=== PATIENT | female | born 1960 | race Caucasian/White ===

== ENCOUNTER 2016-05-21 14:45 | Emergency (ER) | payer OTHER ==
[~2016-05-21] VITALS: Ht 162.6 cm; Wt 104.3 kg
[~2016-05-21 14:45] MED LIST: BACLOFEN10 M1 PO; CYPROHEPTADINE H4 M1 PO; DIVALPROEX SOD500 M3 PO; ETODOLAC400 M1 PO; ISOSORBIDE MONO30 M1 PO; JANUVIA100 M1 PO; LASIX40 M1 PO; LEVEMIR FL100 UNIT/1 SC; LEVETIRACETAM500 M2 PO; LOSARTAN POTASS50 M1 PO; METFORMIN HCL500 M4 PO; METOPROLOL SUCC25 M1 PO; PERCOCET 5-3251 EACH PO; TOPROL XL50 M1 PO; TRAMADOL HCL50 M1 PO; VICODIN 5-3001 EACH PO
--- NOTE | 2016-05-21 15:01 | ED GENERAL ADULT ---
History of Present Illness General Chief Complaint: General Adult Stated Complaint: BIBA HTN, LOPEZ X 1 WEEK Source: patient Exam Limitations: no limitations Vital Signs & Intake/Output Vital Signs & Intake/Output Vital Signs Date Time Temp Pulse Resp B/P Pulse O2 O2 Flow FiO2 Ox Delivery Rate 05/21 1706 98.4 96 16 152/84 96 Room Air 05/21 1559 Room Air 05/21 1450 97.7 84 18 152/91 96 Room Air Allergies Coded Allergies: Penicillins (UNKNOWN 04/01/16) Reconcile Medications Acetaminophen (Mapap) 500 MG CAPSULE 1 CAP PO PRN PAIN (Reported) Baclofen 10 MG TABLET 1 TAB PO DAILY PRN HEADACHE (Reported) Cyproheptadine HCl 4 MG TABLET 1-3 TAB PO BID PRN alleriges (Reported) Divalproex Sodium (Divalproex Sodium ER) 500 MG TAB.ER.24H 1 TAB PO BID SEIZURES (Reported) Etodolac 400 MG TABLET 1 TAB PO TID pain (Reported) Furosemide (Lasix) 40 MG TABLET 1 TAB PO EOD LEG SWELLING (Reported) Hydrocodone/Acetaminophen (Vicodin 5-300 MG Tablet) 5 MG-300 MG TABLET 1 TAB PO Q4-6 PRN PAIN(7-10) (Reported) Hydrocodone/Acetaminophen ([place] 5-325 Tablet) 5 MG-325 MG TABLET 1-2 TAB PO Q4-6 PRN PRN PAIN Insulin Detemir (Levemir Flextouch) 100 UNIT/ML (3 ML) INSULN.PEN 28 UNITS SC 0900 DM TYPE 2 (Reported) Insulin Detemir (Levemir Flextouch) 100 UNIT/ML (3 ML) INSULN.PEN 30 UNITS SC 2000 DM TYPE 2 (Reported) Isosorbide Mononitrate (Isosorbide Mononitrate ER) 30 MG TAB.ER.24H 1 TAB PO DAILY CHEST PAIN (Reported) Levetiracetam 500 MG TABLET 1 TAB PO TID SEIZURE (Reported) Losartan Potassium 50 MG TABLET 1 TAB PO BID HTN (Reported) Metformin HCl (Metformin HCl ER) 500 MG TAB.ER.24H 1 TAB PO DAILY DM TYPE 2 ( Reported) Metoprolol Succinate 50 MG TAB.ER.24H 1 TAB PO BID HTN (Reported) Sitagliptin Phosphate (Januvia) 100 MG TABLET 1 TAB PO DAILY DM TYPE 2 ( Reported) Tramadol HCl 50 MG TABLET 1 TAB PO TIDPRN PAIN (Reported) Triage Note: 56 YEAR OLD FEMALE TO ER VIA MABULANCE FROM HER HOME FOR COMPLAINTS OF ELEVATED BP, BP ON ARRIVAL 152/91 , AND PT STATES THAT SHE HAS SLIGHT HEADACHE , NSR ON MONITOR WITH HR 82. PT STATES THAT SHE HAS CHRONIC PAIN ISSUES DUE TO OSTEOARTHRITIS AND RA, ALSO STATES THAT SHE HAS PORT IN R SIDE CHEST THAT SHE GETS CHEMP TREATMENTS IN.PT TAKES BP MEDS AT HOME AND STATES THAT LOPRESSOR DOSE WAS JUST DOUBLED DUE TO ELEVATED BP'S. Triage Nurses Notes Reviewed? yes Onset: Gradual Duration: week(s): (1) Timing: recent history Injury Environment: home Severity: moderate Severity Numbers: 7 No Modifying Factors: none HPI: Patient is a 56-year-old female with chronic pain, history of hypertension presenting to the emergency Department chief complaint of elevated blood pressure and headaches going on for the past one week. She's been checking her blood pressure twice a day and has been elevated. She recently increased her antihypertensive medication per her doctor with little improvement in blood pressure. She also reports pain everywhere which is baseline for this patient. She takes Vicodin daily for pain. Denies any nausea or vomiting. No chest pain or palpitations. Denies shortness of breath. Denies abdominal pain. Nothing seems to make symptoms better or worse. Denies visual changes. Moderate. (JOANNA MULLER) Past History Travel History Traveled to [place] past 21 day No Medical History Any Pertinent Medical History? 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 No (JOANNA MULLER) Review of Systems Review of Systems Constitutional: Reports: no symptoms. Comments Review of systems: See HPI, All other systems negative. Constitutional, no chills fever or weight loss HEENT: No visual changes no sore throat no congestion Cardiovascular: No chest pain ,palpitation , orthopnea or ankle swelling Skin, no jaundice no rashes Respiratory: No dyspnea cough sputum or hemoptysis GI: No nausea no vomiting : No dysuria No hematuria Muscle skeletal: no neck pain, Neurologic: No numbness no confusion Psych: No stress anxiety or depression,. Heme/endocrine: No bruising no bleeding no polyuria or polydipsia Immunology: No splenectomy or history of AIDS (JOANNA MULLER) Physical Exam Physical Exam General Appearance: well developed/nourished, no apparent distress, alert, mild distress Comments: Well-developed well-nourished person in no acute distress HEENT: Normal EENT exam, extraocular motion intact, no nystagmus. Pupils equally round and reactive to light and accommodation. Nose is atraumatic. External auditory canal and Tympanic membranes clear. Pharynx normal. No swelling or edema. No sinus tenderness to palpation bilaterally. Neck: Supple, no lymphadenopathy, normal range of motion without pain or tenderness Back: diffuse tenderness to palpation over the lumbar paraspinal muscles, thoracic paraspinal muscles, Cardiovascular: Regular rate and rhythms no murmurs rubs or gallops, normal JVP Respiratory: Chest nontender. No respiratory distress.breath sounds clear to auscultation bilaterally Abdomen: Soft, obese, nontender nondistended, no appreciable organomegaly. Normal bowel sounds. No ascites Extremity: No edema, no calf tenderness to palpation, normal and equal pulses. Air cast on left ankle. Neuro: Alert oriented x3, motor sensory normal, cranial nerves II through XII grossly intact. Cerebellar testing is unremarkable. Skin: No appreciable rash on exposed skin, skin is warm and dry. Psych: Mood and affect is normal, memory and judgment is normal. Core Measures ACS in differential dx? No CVA/TIA Diagnosis: No Severe Sepsis Present: No Septic Shock Present: No (JOANNA MULLER) Progress Differential Diagnoses I considered the following diagnoses in my evaluation of the patient: Chronic pain, hypertensive urgency, intracranial hemorrhage, medication noncompliance, anxiety, tension headache, migraine headache, medication withdrawal Plan of Care: Orders Procedure Date/time Status Add-on Test (ER Only) 05/21 1558 Active LYME TITRE 05/21 1555 Active TROPONIN LEVEL 05/21 1500 Complete COMPREHENSIVE METABOLIC PANEL 05/21 1500 Complete CBC WITHOUT DIFFERENTIAL 05/21 1500 Complete EKG 05/21 1445 Active Laboratory Tests 05/21/16 1555: Anion Gap 10, Estimated GFR > 60, BUN/Creatinine Ratio 62.5 H, Glucose 166 H, Calcium 8.7, Total Bilirubin 0.5, AST 21, ALT 25, Alkaline Phosphatase 114, Troponin I < 0.01, Total Protein 6.6, Albumin 3.0 L, Globulin 3.6, Albumin/ Globulin Ratio 0.8 L, CBC w Diff NO MAN DIFF REQ, RBC 3.20 L, MCV 84.9, MCH 28.1, RDW 16.0 H, MPV 6.9 L, Gran % 67.5, Lymphocytes % 25.1, Monocytes % 5.0, Eosinophils % 2.1, Basophils % 0.3, Absolute Granulocytes 2.5, Absolute Lymphocytes 0.9 L, Absolute Monocytes 0.2, Absolute Eosinophils 0.1, Absolute Basophils 0, PUBS MCHC 33.1, Lyme Disease Antibody Pending Diagnostic Imaging: Viewed by Me: CT Scan. Discussed w/RAD: CT Scan. Radiology Impression: PATIENT: CONSTANTINE GARCIA PRESENT AGE: 56 PATIENT ACCOUNT NO: [id number] : 58 LOCATION: [facility] ORDERING PHYSICIAN: JOANNA LOWE SERVICE DATE: 05/21/16-1499 EXAM TYPE: CAT - CT HEAD WO IV CONTRAST EXAMINATION: CT HEAD WITHOUT CONTRAST CLINICAL INFORMATION: Headache. Hypertension. COMPARISON: CT head 04/03/2016. TECHNIQUE: Contiguous axial imaging was performed from the skull base to vertex without intravenous administration of contrast. DLP: 600.71 mGy-cm. FINDINGS: There is no acute intracranial hemorrhage or abnormal extra-axial collection. No intracranial mass effect or midline shift. Lateral and third ventricles are proportionate to the subarachnoid spaces. No hydrocephalus. Roldan-white matter differentiation is preserved and there is no evidence of acute territorial infarct. The calvarium and skull base are intact. Mastoid air cells and middle ear cavities are well aerated. Visualized paranasal sinuses are well aerated. IMPRESSION: No evidence of acute territorial infarct or hemorrhage. DICTATED BY: HYNECEK DORON HOLLOWAY DATE/TIME DICTATED:05/21/161542 MEDICAL RESEARCH ASSISTANT: VANNA CXR Impression: PATIENT: CONSTANTINE GARCIA PRESENT AGE: 56 PATIENT ACCOUNT NO: [id number] : 58 LOCATION: [facility] ORDERING PHYSICIAN: JOANNA LOWE SERVICE DATE: 05/21/16 EXAM TYPE: RAD - XRY- PORTABLE CHEST XRAY EXAMINATION: XR PORTABLE CHEST CLINICAL INFORMATION: Cardiomegaly. COMPARISON: Chest x-ray 04/01/2016 TECHNIQUE: Portable view of the chest was obtained. FINDINGS: Central port catheter tip at caval atrial junction. Lungs are clear. No pulmonary vascular congestion. Cardiac and mediastinal contours are normal. IMPRESSION: No acute abnormality of chest. DICTATED BY: CHARLIE WALKER MD DATE/TIME DICTATED:05/21/161544 MEDICAL RESEARCH ASSISTANT :VANNA DATE/TIME TRANSCRIBED:05/21/161544 Initial ED EKG: NSR Comments: On arrival patient in mild distress complaining about pain diffusely. She is neurologically intact. She was given a by mouth Vicodin with relief in pain. Blood pressure was in normal range. No indication for IV antihypertensive medications at this time. Patient for CT head. Patient informed of all lab results and imaging study results. No acute findings. Blood pressure remained stable. Patient much more comfortable this time after by mouth Vicodin. She'll follow-up with her rehabilitation tech and her primary care physician. Also given pain management as patient's family reports that they need similar they can take care of her chronic pain. Discussed with and he agrees to plan. EKG is normal sinus. (BRIAN LOWE,JOANNA) Departure Departure Time of Disposition: 1713 Disposition: HOME OR SELF CARE Condition: Stable Clinical Impression Primary Impression: Headache Qualifiers: Headache type: unspecified Headache chronicity pattern: unspecified pattern Intractability: not intractable Qualified Code: R51 - Headache Secondary Impressions: Chronic pain Referrals: NATHAN HOLLOWAY,TYLER Ribeiro (PCP/Family) Additional Instructions: Follow-up with your primary care physician call to make an appointment. Return for worsening symptoms or concerns. Make sure you follow up with your rehabilitation tech about your hypertension over the past week. Return for worsening symptoms or concerns. Departure Forms: Customer Survey General Discharge Information Prescriptions: Current Visit Scripts Hydrocodone/Acetaminophen ([place] 5-325 Tablet) 1-2 TAB PO Q4-6 PRN PRN PAIN #10 TAB (JOANNA MULLER) PA/MIXING PLANT OPERATOR Co-Sign Statement Statement: ED Attending supervision documentation- [] I saw and evaluated the patient. I have also reviewed all the pertinent lab results and diagnostic results. I agree with the findings and the plan of care as documented in the PA's/MIXING PLANT OPERATOR's documentation. x I have reviewed the ED Record and agree with the PA's/MIXING PLANT OPERATOR's documentation. [] Additions or exceptions (if any) to the PAs/MIXING PLANT OPERATOR's note and plan are summarized below: [] (CHIQUITA HOLLOWAY,SARTHAK) Critical Care Note Critical Care Note Critical Care Time: non-applicable (JOANNA MULLER)
--- NOTE | 2016-05-21 15:48 | CT SCAN REPORT ---
EXAMINATION: CT HEAD WITHOUT CONTRAST CLINICAL INFORMATION: Headache. Hypertension. COMPARISON: CT head 04/03/2016. TECHNIQUE: Contiguous axial imaging was performed from the skull base to vertex without intravenous administration of contrast. DLP: 600.71 mGy-cm. FINDINGS: There is no acute intracranial hemorrhage or abnormal extra-axial collection. No intracranial mass effect or midline shift. Lateral and third ventricles are proportionate to the subarachnoid spaces. No hydrocephalus. Roldan-white matter differentiation is preserved and there is no evidence of acute territorial infarct. The calvarium and skull base are intact. Mastoid air cells and middle ear cavities are well aerated. Visualized paranasal sinuses are well aerated. IMPRESSION: No evidence of acute territorial infarct or hemorrhage.
--- NOTE | 2016-05-21 15:50 | RADIOLOGY REPORT ---
EXAMINATION: XR PORTABLE CHEST CLINICAL INFORMATION: Cardiomegaly. COMPARISON: Chest x-ray 04/01/2016 TECHNIQUE: Portable view of the chest was obtained. FINDINGS: Central port catheter tip at caval atrial junction. Lungs are clear. No pulmonary vascular congestion. Cardiac and mediastinal contours are normal. IMPRESSION: No acute abnormality of chest.
[2016-05-21 16:05] LABS: ABSOLUTE BASOPHIL COUNT 0 /CUMM (0.0-0.2); ABSOLUTE EOSINOPHIL COUNT 0.1 /CUMM (0.0-0.7); ABSOLUTE GRANULOCYTE CT 2.5 /CUMM (1.4-6.5); ABSOLUTE LYMPH COUNT 0.9 /CUMM (1.2-3.4); ABSOLUTE MONOCYTE COUNT 0.2 /CUMM (0.10-0.60); BASOPHIL % 0.3 % (0.0-2.0); EOSINOPHIL % 2.1 % (0-5); GRANULOCYTE % 67.5 % (42.2-75.2); HEMATOCRIT 27.2 % (37-47); MEAN CORPUSCULAR HGB 28.1 PG (27.0-31.0); MEAN CORPUSCULAR HGB CONC 33.1 G/DL (33.0-37.0); MEAN CORPUSCULAR VOLUME 84.9 FL (81.0-99.0); MEAN PLATELET VOLUME 6.9 FL (7.4-10.4); PLATELET COUNT 197 /CUMM (130-400); WHITE BLOOD CELL COUNT 3.7 /CUMM (4.8-10.8)
[2016-05-21] MEDS ORDERED: METOPROLOL SUCC50 M2 PO (16:25)
[2016-05-21] MEDS ORDERED: MAPAP500 M2 PO (16:31)
[2016-05-21 17:06] VITALS: BP 152/84
[2016-05-21] MEDS ORDERED: NORCO 5-325 TA1 EACH PO (17:23)
== END 2016-05-21 17:36 ==
LOC: ERH 14:45
PROVIDERS: Physician Assistant
DX: R51 Headache (principal); G89.29 Other chronic pain
CPT/HCPCS: 86618; 93005; 93010

== ENCOUNTER 2016-09-02 13:31 | Inpatient (IN) | payer OTHER ==
[~2016-09-02] VITALS: Ht 162.6 cm; Wt 112.0 kg
[~2016-09-02 13:31] MED LIST changes: +MAPAP500 M2 PO; +METOPROLOL SUCC50 M2 PO; +NORCO 5-325 TA1 EACH PO
--- NOTE | 2016-09-02 14:26 | ED GENERAL ADULT ---
See Addendum History of Present Illness General Chief Complaint: General Adult Stated Complaint: WEAKNESS Source: patient, family, old records Exam Limitations: no limitations Vital Signs & Intake/Output Vital Signs & Intake/Output Vital Signs Date Time Temp Pulse Resp B/P Pulse O2 O2 Flow FiO2 Ox Delivery Rate 09/03 0023 68 122/82 09/02 2309 98.2 80 20 122/82 97 Room Air 09/02 2039 97.5 86 20 123/68 96 Room Air 09/02 1828 78 18 123/58 92 Room Air 09/02 1500 96 Room Air 09/02 1435 90 118/56 09/02 1416 81/56 09/02 1415 88 102/74 09/02 1337 97.7 91 22 123/82 96 Room Air Allergies Coded Allergies: Penicillins (UNKNOWN 04/01/16) Triage Note: PT SENT IN BY DR. CARMEN FOR ANEMIA AND SOB WITH EXERTION. PER DR. CARMEN PT WAS SOB AT THE OFFICE WHEN EXERTING HERSELF. PT RA SAT ON ARRIVAL 96% BUT MD REPORTED A SAT OF 81% WITH EXERTION. Triage Nurses Notes Reviewed? yes Onset: Abrupt Duration: week(s): (2), constant, continues in ED Timing: recent history Injury Environment: home Severity: moderate, severe No Modifying Factors: none HPI: 56-year-old female comes into emergency room for further evaluation of increased weakness over the past 2 weeks shortness of breath and fatigue. Patient has been having associated lightheadedness. Patient has a history of myelodysplastic syndrome. She was at the cancer center today for routine checkup and she was found to be hypoxic to 81% on room air. She was sent over to the hospital for further evaluation. She denies any cough. She denies any fever. Denies any vomiting or abdominal pain. (DEANA LANTIGUA) Reconcile Medications Acetaminophen (Mapap) 500 MG CAPSULE 1 CAP PO Q6 PRN PAIN (Reported) Amlodipine Besylate 5 MG TABLET 2 TAB PO DAILY HEART (Reported) Baclofen 10 MG TABLET 1 TAB PO DAILY PRN HEADACHE (Reported) Chlorthalidone 25 MG TABLET 0.5 TAB PO DAILY WATER RETENTION (Reported) Cyproheptadine HCl 4 MG TABLET 2 TAB PO BID PRN alleriges (Reported) Divalproex Sodium (Divalproex Sodium ER) 500 MG TAB.ER.24H 1 TAB PO BID SEIZURES (Reported) Esomeprazole (Nexium) 40 MG CAPSULE.DR 1 CAP PO DAILY GI (Reported) Etodolac 400 MG TABLET 1 TAB PO TID pain (Reported) Fexofenadine HCl (Deana Allergy) 60 MG TABLET 1 TAB PO DAILY PRN ALLERGIES (Reported) Hydrocodone/Acetaminophen (Hydrocodon-Acetaminoph 7.5-325) 7.5 MG-325 MG TABLET 1 TAB PO Q8P PRN PAIN (Reported) Insulin Detemir (Levemir) 100 UNIT/ML VIAL 15 UNITS SC DAILY diabetes Isosorbide Mononitrate (Isosorbide Mononitrate ER) 30 MG TAB.ER.24H 1 TAB PO DAILY CHEST PAIN (Reported) Levetiracetam 500 MG TABLET 1 TAB PO 4 TIMES/DAY SEIZURES (Reported) Losartan Potassium 50 MG TABLET 1 TAB PO BID HTN (Reported) Metformin HCl (Metformin HCl ER) 500 MG TAB.ER.24H 1 TAB PO DAILY DM TYPE 2 ( Reported) Metoprolol Succinate 50 MG TAB.ER.24H 1 TAB PO BID HTN (Reported) Morphine Sulfate (Morphine Sulfate ER) 15 MG TABLET.ER 1 TAB PO BIDP pain Multivitamin (Daily Multiple Vitamin) 1 EACH TABLET 1 TAB PO DAILY SUPPLEMENT (Reported) Rutin/Hesp/Bioflav/C/Herb#196 (Bioflex Tablet) 40 MG-25 MG-50 MG-500 MG TABLET 1 TAB PO DAILY SUPPLEMENT (Reported) Sitagliptin Phosphate (Januvia) 100 MG TABLET 1 TAB PO DAILY DM TYPE 2 ( Reported) (OTPHER HOLLOWAY,KENA) Past History Travel History Traveled to [place] past 21 day No Medical History Any Pertinent Medical History? 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 No (DEANA LANTIGUA) Review of Systems Review of Systems Constitutional: Reports: see HPI. EENTM: Reports: no symptoms. Respiratory: Reports: see HPI. Cardiovascular: Reports: no symptoms. GI: Reports: see HPI. Genitourinary: Reports: see HPI. Musculoskeletal: Reports: no symptoms. Skin: Reports: no symptoms. Neurological/Psychological: Reports: no symptoms. Hematologic/Endocrine: Reports: no symptoms. Immunologic/Allergic: Reports: no symptoms. All Other Systems: Reviewed and Negative (DEANA LANTIGUA) Physical Exam Physical Exam General Appearance: alert, awake Head: atraumatic, normal appearance Eyes: Bilateral: normal appearance. Ears, Nose, Throat: normal ENT inspection, hearing grossly normal Neck: normal inspection Respiratory: normal breath sounds, no respiratory distress Cardiovascular: regular rate/rhythm, tachycardia Gastrointestinal: soft, non-tender Back: normal inspection Extremities: normal inspection Skin: pallor Core Measures ACS in differential dx? Yes CVA/TIA Diagnosis: No Severe Sepsis Present: No Septic Shock Present: No (DEANA LANTIGUA) Progress Differential Diagnoses I considered the following diagnoses in my evaluation of the patient: Anemia, GI bleed, sepsis, hypovolemic shock, orthostatic, electrolyte imbalance, pneumonia, pulmonary embolism, [place], Plan of Care: Orders Procedure Date/time Status Consistent Carbohydrate 3 09/03 B Active AMMONIA 09/03 0600 Active CBC WITHOUT DIFFERENTIAL 09/03 0600 Active BASIC ELECTROLYTES PLUS BUN&CR 09/03 0600 Active TROPONIN LEVEL 09/03 0400 Active EKG 09/03 0400 Active Change service to 09/02 2318 Active EKG 09/02 2200 Active TROPONIN LEVEL 09/02 2149 Complete LOWER RESPIRATORY CULTURE 09/02 2122 Active Code Status 09/02 2121 Active TRC EVALUATION (GEN) 09/02 2017 Active OXYGEN SETUP (GEN) 09/02 2017 Active Pathway - chart 09/02 2017 Active House Staff 09/02 2016 Active Patient Data 09/02 2001 Active Saline Lock 09/02 1957 Active Misc Message 09/02 1957 Active ED Holding Orders 09/02 1957 Active Vital Signs 09/02 1957 Active Activity/Ambulation 09/02 1957 Active Code Status 09/02 1957 Complete Admit to inpatient 09/02 1943 Active BLOOD CULTURE 09/02 1456 Active THYROID STIMULATING HORMONE 09/02 1447 Active GLYCOSYLATED HGB 09/02 1447 Active MISTAKE 09/02 1431 Active BLOOD CULTURE 09/02 1430 Active URINALYSIS 09/02 1430 Complete TROPONIN LEVEL 09/02 1430 Active LACTIC ACID 09/02 1430 Active D-DIMER 09/02 1430 Complete COMPREHENSIVE METABOLIC PANEL 09/02 1430 Active CBC WITHOUT DIFFERENTIAL 09/02 1430 Complete TYPE & SCREEN (NOT X-MATCH) 09/02 1430 Complete Intake & Output 09/02 1427 Active EKG 09/02 1413 Active US-EXT BILAT VENOUS DOPPLER 09/02 UNK Active PT Evaluate & Treat 09/02 UNK Active Lab Add-on Test 09/02 UNK Active VTE Mechanical Prophylaxis 09/02 UNK Active Vital Signs 09/02 UNK Complete MISTAKE 09/02 UNK Active Seizure Precautions 09/02 UNK Active Precautions 09/02 UNK Active FingerStick- Glucose 09/02 UNK Active ECHOCARDIOGRAM 09/02 UNK Active Current Medications Sig/Emile Start time Last Medication Dose Stop Time Status Admin Amlodipine Besylate 10 MG DAILY 09/03 1000 AC (Norvasc) Insulin Detemir 20 UNITS BID 09/03 1000 UNVr (Levemir) Losartan Potassium 50 MG DAILY 09/03 1000 AC (Cozaar) Multivitamins 1 TAB DAILY 09/03 1000 AC Therapeutic (Theragran-M Vitamins Tabs) Insulin Aspart 0 TIDAC 09/03 0800 AC (NovoLOG) Omeprazole 40 MG DAILY AC 09/03 0700 AC (Prilosec) Acetaminophen 650 MG Q4P PRN 09/02 2200 AC (Tylenol) Morphine Sulfate 15 MG TID 09/02 2200 CAN (Duramorph/Pf) Morphine Sulfate 15 MG TID 09/02 2200 CAN (MSIR) Acetaminophen/ 15 ML Q8P PRN 09/02 2145 AC Hydrocodone Bitart (Hycet) Sodium Chloride 1,000 ML Q13H 09/02 2130 AC (Normal Saline 0.9%) 09/03 1029 Azithromycin 1,000 MG ONCE ONE 09/02 1944 CAN (Zithromax) 09/02 1945 Ceftriaxone Sodium 250 MG ONCE ONE 09/02 1944 CAN (Rocephin) 09/02 1945 Fluconazole 150 MG ONCE ONE 09/02 1944 CAN (Diflucan) 09/02 1945 Laboratory Tests 09/02/16 2240: Urinalysis MANY H, Urine Color YEL, Urine Clarity HAZY H, Urine pH 6.0, Ur Specific [place] <= 1.005, Urine Protein NEG, Urine Ketones NEG, Urine Nitrite NEG, Urine Bilirubin MOD H, Urine Urobilinogen 0.2, Ur Leukocyte Esterase TRACE H, Ur Microscopic SEDIMENT EXAMINED, Urine RBC RARE, Urine WBC 1-3 H, Ur Epithelial Cells MOD H, Urine Bacteria FEW H, Hyaline Casts RARE H, Granular Casts RARE H, Urine Mucus FEW, Urine Hemoglobin NEG, Urine Glucose NEG 09/02/16 2150: Troponin I < 0.01 09/02/16 1730: Lactic Acid Cancelled 09/02/16 1447: Anion Gap 10, Estimated GFR > 60, BUN/Creatinine Ratio 37.8 H, Glucose 101 H, Hemoglobin A1c Pending, Lactic Acid 1.7, Calcium 10.0, Total Bilirubin 0.7, AST 19, ALT 31, Alkaline Phosphatase 100, Troponin I < 0.01, Total Protein 7.4, Albumin 3.4 L, Globulin 4.0, Albumin/Globulin Ratio 0.9 L, TSH 3.060, D-Dimer 3880 H, CBC w Diff NO MAN DIFF REQ, RBC 3.17 L, MCV 86.3, MCH 29.3, RDW 16.1 H, MPV 6.2 L, Gran % 69.5, Lymphocytes % 20.3 L, Monocytes % 8.4, Eosinophils % 1.6, Basophils % 0.2, Absolute Granulocytes 3.1, Absolute Lymphocytes 0.9 L, Absolute Monocytes 0.4, Absolute Eosinophils 0.1, Absolute Basophils 0, PUBS MCHC 34.0 Microbiology 09/02 2121 LOWER RESP: Respiratory Culture - ORD 09/02 2121 LOWER RESP: Gram Stain - ORD 09/02 1455 BLOOD: Blood Culture - RECD 09/02 1447 BLOOD: Blood Culture - RECD 09/02 1430 BLOOD: Blood Culture - CAN Cancelled: Cancelled via OE: NEED NEW ORDER Diagnostic Imaging: Viewed by Me: Radiology Read, CT Scan. Discussed w/RAD: Radiology Read, CT Scan. Radiology Impression: EXAM TYPE: CAT - CTA CHEST-PULMONARY EMBOLISM EXAMINATION: CT ANGIOGRAM OF THE CHEST WITH AND WITHOUT CONTRAST (CT PULMONARY ANGIOGRAM FOR PE) CLINICAL INFORMATION: Hypoxia. Elevated d-dimer. COMPARISON: CT chest dated 04/13/2010 TECHNIQUE: Prior to contrast administration, noncontrast localization images were obtained. Subsequently, multidetector volumetric imaging was performed from the thoracic inlet to below the diaphragms following the administration of 95 mL Optiray 350 intravenous contrast. No contrast reaction reported. Sagittal, coronal, and MIP oblique sagittal reformatted images were obtained on the CT workstation, uploaded to PACS, and reviewed. Total exam dose- length product 599.73 mGy-cm. FINDINGS: QUALITY OF STUDY/CONTRAST BOLUS: Satisfactory PULMONARY ARTERIES: No central or segmental pulmonary emboli. THORACIC AORTA: Mild atherosclerotic disease. No evidence of aneurysmal dilatation or dissection. LUNG: Mild centrilobular emphysematous changes. Minor dependent atelectatic changes. No suspicious airspace opacity. No suspicious lung nodules. Subsegmental linear atelectatic changes left base. Tracheobronchial tree is within normal limits. PLEURA: No pleural effusion or pneumothorax. MEDIASTINUM: Right-sided Port-A-Cath with the tip at the cavoatrial junction. No evidence of mediastinal or hilar lymphadenopathy. Mildly enlarged lymph nodes noted in the left retropectoral region (series 600 image 25 ) measuring approximately 1 cm. This represents an interval change. Small reactive lymph nodes noted in the superior mediastinum. No evidence of hilar lymphadenopathy. No evidence of septal bowing or right heart strain. Mild asymmetric prominence of the right thyroid lobe also seen on the prior examination. No discrete nodules identified. CHEST WALL/AXILLA: Mildly enlarged subpectoral chest wall lymph node. No extra evidence of axillary lymphadenopathy. No gross axillary lymphadenopathy. Right posterior diaphragmatic Bochdalek hernia. OSSEOUS STRUCTURES: Scoliosis and degenerative changes of the thoracic spine. No acute or suspicious osseous abnormality. UPPER ABDOMEN: Splenomegaly measuring approximately 15 cm in the AP diameter. Focal prominence right adrenal gland measuring 1.9 x 1.2 cm. Hounsfield units do not represent lipid rich adrenal adenoma. Further assessment with dedicated adrenal CT scan is therefore recommended. No reflux of contrast into the hepatic veins to suggest elevated right heart pressures. IMPRESSION: 1. There is no CTA evidence of acute pulmonary embolism. 2. No suspicious lung nodules. 3. Nonspecific mildly enlarged left subpectoral lymph node. 4. Stable right adrenal enlargement. Given the long-term stability, likely representing benign etiology.. 5. Stable splenomegaly. VTE: negative DICTATED BY: JANET MCNULTY MD DATE/TIME DICTATED:09/02/161699 WASHING MACHINE MECHANIC:VANNA DATE/TIME TRANSCRIBED:09/02/161699, EXAM TYPE: RAD - XRY-CHEST XRAY, PA AND LATERAL EXAMINATION: XR CHEST CLINICAL INFORMATION: Evaluate for pneumonia. Shortness of breath. COMPARISON: Chest x-rays most recent prior dated 05/21/2016 TECHNIQUE: 2 views of the chest were obtained. FINDINGS: Right-sided Port-A-Cath with the tip at the caval atrial junction. Stable cardiomediastinal silhouette. Lungs are clear. Bony thorax is intact. IMPRESSION: No acute pulmonary disease. Initial ED EKG: normal intervals, normal p-waves, normal sinus rhythm, rate (85) , nonspecific ST T wave chg (DEANA LANTIGUA) Departure Departure Disposition: STILL A PATIENT Condition: Stable Clinical Impression Primary Impression: Acute electrocardiogram changes Secondary Impressions: Orthostatic hypotension, Prerenal azotemia Referrals: TYLER EVANS MD (PCP/Family) Departure Forms: Customer Survey General Discharge Information Admission Note Spoke With: TYLER EVANS MD Documentation of Exam: Documentation of any treatments & extenuating circumstances including Concerns Regarding Discharge (functional status, medication knowledge or non-compliance, living conditions, etc.) that warrant an admission rather than observation: Patient will require IV hydration. Cardiac telemetry. Oncology consultation. Repeat labs. Patient would do poorly as an outpatient. (DEANA LANTIGUA) Departure Prescriptions: Current Visit Scripts Insulin Detemir (Levemir) 15 UNITS SC DAILY 30 Days Morphine Sulfate (Morphine Sulfate ER) 1 TAB PO BIDP #10 TAB (TOPHER HOLLOWAY,KENA) PA/ARTS AND CRAFTS INSTRUCTOR Co-Sign Statement Statement: ED Attending supervision documentation- [X] I saw and evaluated the patient. I have also reviewed all the pertinent lab results and diagnostic results. I agree with the findings and the plan of care as documented in the PA's/ARTS AND CRAFTS INSTRUCTOR's documentation. [X] I have reviewed the ED Record and agree with the PA's/ARTS AND CRAFTS INSTRUCTOR's documentation. [] Additions or exceptions (if any) to the PAs/ARTS AND CRAFTS INSTRUCTOR's note and plan are summarized below: [] (LEILA HOLLOWAY,KEVIN Mancera) Critical Care Note Critical Care Note Critical Care Time: non-applicable (DEANA LANTIGUA)
[2016-09-02] MEDS ORDERED: AMLODIPINE BESYL5 M1 PO (14:41)
[2016-09-02] MEDS ORDERED: DAILY MULTIPLE1 EACH PO (14:41)
[2016-09-02] MEDS ORDERED: NEXIUM40 M1 PO (14:42)
[2016-09-02] MEDS ORDERED: BIOFLEX TABLET1 EACH PO (14:43)
[2016-09-02] MEDS ORDERED: ALLEGRA ALLERGY60 M1 PO (14:44)
[2016-09-02] MEDS ORDERED: CHLORTHALIDONE25 M1 PO (14:44)
[2016-09-02] MEDS ORDERED: MORPHINE SULFAT15 M3 PO (14:45)
[2016-09-02] MEDS ORDERED: HYDROCODON-ACE1 EAC3 PO (14:45)
[2016-09-02 15:01] LABS: ABSOLUTE BASOPHIL COUNT 0 /CUMM (0.0-0.2); ABSOLUTE EOSINOPHIL COUNT 0.1 /CUMM (0.0-0.7); ABSOLUTE GRANULOCYTE CT 3.1 /CUMM (1.4-6.5); ABSOLUTE LYMPH COUNT 0.9 /CUMM (1.2-3.4); ABSOLUTE MONOCYTE COUNT 0.4 /CUMM (0.10-0.60); BASOPHIL % 0.2 % (0.0-2.0); EOSINOPHIL % 1.6 % (0-5); GRANULOCYTE % 69.5 % (42.2-75.2); HEMATOCRIT 27.3 % (37-47); MEAN CORPUSCULAR HGB 29.3 PG (27.0-31.0); MEAN CORPUSCULAR VOLUME 86.3 FL (81.0-99.0); MEAN PLATELET VOLUME 6.2 FL (7.4-10.4); PLATELET COUNT 286 /CUMM (130-400); RBC DISTRIBUTION WIDTH 16.1 % (11.5-14.5); RED BLOOD CELL CT 3.17 /CUMM (4.20-5.40); WHITE BLOOD CELL COUNT 4.5 /CUMM (4.8-10.8)
--- NOTE | 2016-09-02 15:53 | RADIOLOGY REPORT ---
EXAMINATION: XR CHEST CLINICAL INFORMATION: Evaluate for pneumonia. Shortness of breath. COMPARISON: Chest x-rays most recent prior dated 05/21/2016 TECHNIQUE: 2 views of the chest were obtained. FINDINGS: Right-sided Port-A-Cath with the tip at the caval atrial junction. Stable cardiomediastinal silhouette. Lungs are clear. Bony thorax is intact. IMPRESSION: No acute pulmonary disease.
--- NOTE | 2016-09-02 17:20 | CT SCAN REPORT ---
EXAMINATION: CT ANGIOGRAM OF THE CHEST WITH AND WITHOUT CONTRAST (CT PULMONARY ANGIOGRAM FOR PE) CLINICAL INFORMATION: Hypoxia. Elevated d-dimer. COMPARISON: CT chest dated 04/13/2010 TECHNIQUE: Prior to contrast administration, noncontrast localization images were obtained. Subsequently, multidetector volumetric imaging was performed from the thoracic inlet to below the diaphragms following the administration of 95 mL Optiray 350 intravenous contrast. No contrast reaction reported. Sagittal, coronal, and MIP oblique sagittal reformatted images were obtained on the CT workstation, uploaded to PACS, and reviewed. Total exam dose-length product 599.73 mGy-cm. FINDINGS: QUALITY OF STUDY/CONTRAST BOLUS: Satisfactory PULMONARY ARTERIES: No central or segmental pulmonary emboli. THORACIC AORTA: Mild atherosclerotic disease. No evidence of aneurysmal dilatation or dissection. LUNG: Mild centrilobular emphysematous changes. Minor dependent atelectatic changes. No suspicious airspace opacity. No suspicious lung nodules. Subsegmental linear atelectatic changes left base. Tracheobronchial tree is within normal limits. PLEURA: No pleural effusion or pneumothorax. MEDIASTINUM: Right-sided Port-A-Cath with the tip at the cavoatrial junction. No evidence of mediastinal or hilar lymphadenopathy. Mildly enlarged lymph nodes noted in the left retropectoral region (series 600 image 25) measuring approximately 1 cm. This represents an interval change. Small reactive lymph nodes noted in the superior mediastinum. No evidence of hilar lymphadenopathy. No evidence of septal bowing or right heart strain. Mild asymmetric prominence of the right thyroid lobe also seen on the prior examination. No discrete nodules identified. CHEST WALL/AXILLA: Mildly enlarged subpectoral chest wall lymph node. No extra evidence of axillary lymphadenopathy. No gross axillary lymphadenopathy. Right posterior diaphragmatic Bochdalek hernia. OSSEOUS STRUCTURES: Scoliosis and degenerative changes of the thoracic spine. No acute or suspicious osseous abnormality. UPPER ABDOMEN: Splenomegaly measuring approximately 15 cm in the AP diameter. Focal prominence right adrenal gland measuring 1.9 x 1.2 cm. Hounsfield units do not represent lipid rich adrenal adenoma. Further assessment with dedicated adrenal CT scan is therefore recommended. No reflux of contrast into the hepatic veins to suggest elevated right heart pressures. IMPRESSION: 1. There is no CTA evidence of acute pulmonary embolism. 2. No suspicious lung nodules. 3. Nonspecific mildly enlarged left subpectoral lymph node. 4. Stable right adrenal enlargement. Given the long-term stability, likely representing benign etiology.. 5. Stable splenomegaly. VTE: negative
--- NOTE | 2016-09-02 20:10 | History & Physical ---
SEBASTIAN OBANDO MD 09/02/16 2009: General Information and HPI MD Statement: I have seen and personally examined CONSTANTINE GARCIA and documented this H&P. The patient is a 56 year old F who presented with a patient stated chief complaint of []. Source of Information: patient, family, old records Exam Limitations: no limitations History of Present Illness: Patient is a 56-year-old female with hx of coronary artery disease , history of cardiac catheterization(2010) found to have normal coronaries, hypertension, diastolic heart failure , goiter, seizures (on Keppra and Depakote), osteoarthritis, osteoporosis, bilateral ankle fracture , type 2 diabetes, anemia , myelodysplastic syndrome presented with chief complaints of generalized weakness, shortness of breath and fatigue associated with light headedness since past 2 weeks. Most of the history is taken from the . She had chemotherapy in 2005. She is regularly following Dr Baez.When she was in the cancer Center she was found to have low SPO2 of 81% on room air after walking couple of steps. So she was sent to the hospital for further workup. She is also saying that she feel lethargic since 2 -3 weeks, she has no appetite , complaining of nausea, cold finger, lightheaded, shakes. Since couple of days. Her sugar level are going down, they are in 50s specialy in the morning. She was also complaining of chest pain,intermittent in nature, located in left side of chest, lasted for couple of minutes, sharp and stabbing in nature, she had similar pain before and she think it is same like hurt burn. She is also complaining of nocturia and increased frequency of urination. she feels foggy sometimes when she changes the position. She is also having small area of excoriation in lower back secondary to use of dependable. She also says that her brother is sick. He is having cough. She is following Dr maxwell and last visit was a week ago and was tols she is stable from cardiac point of view. She is on morphine/Java codeine for ankle pain. Denies fever, chills. Dysuria, hematuria, diarrhea, constipation, palpitation. Personal history - doesn't smoke, occasionally drinks alcohol. Allergies penicillin Allergies/Medications Allergies: Coded Allergies: Penicillins (UNKNOWN 04/01/16) Home Med list Acetaminophen (Mapap) 500 MG CAPSULE 1 CAP PO PRN PAIN (Reported) Amlodipine Besylate 5 MG TABLET 2 TAB PO DAILY HEART (Reported) Baclofen 10 MG TABLET 1 TAB PO DAILY PRN HEADACHE (Reported) Chlorthalidone 25 MG TABLET 0.5 TAB PO DAILY WATER RETENTION (Reported) Cyproheptadine HCl 4 MG TABLET 2 TAB PO BID PRN alleriges (Reported) Divalproex Sodium (Divalproex Sodium ER) 500 MG TAB.ER.24H 1 TAB PO BID SEIZURES (Reported) Esomeprazole (Nexium) 40 MG CAPSULE.DR 1 CAP PO DAILY GI (Reported) Etodolac 400 MG TABLET 1 TAB PO TID pain (Reported) Fexofenadine HCl (Deana Allergy) 60 MG TABLET 1 TAB PO DAILY PRN ALLERGIES (Reported) Furosemide (Lasix) 40 MG TABLET 1 TAB PO EOD LEG SWELLING (Reported) Hydrocodone/Acetaminophen (Hydrocodon-Acetaminoph 7.5-325) 7.5 MG-325 MG TABLET 1 TAB PO Q8P PRN PAIN (Reported) Insulin Detemir (Levemir Flextouch) 100 UNIT/ML (3 ML) INSULN.PEN 28 UNITS SC 0900 DM TYPE 2 (Reported) Insulin Detemir (Levemir Flextouch) 100 UNIT/ML (3 ML) INSULN.PEN 28 UNITS SC 2000 DM TYPE 2 (Reported) Isosorbide Mononitrate (Isosorbide Mononitrate ER) 30 MG TAB.ER.24H 1 TAB PO DAILY CHEST PAIN (Reported) Levetiracetam 500 MG TABLET 1 TAB PO 4 TIMES/DAY SEIZURES (Reported) Losartan Potassium 50 MG TABLET 1 TAB PO BID HTN (Reported) Metformin HCl (Metformin HCl ER) 500 MG TAB.ER.24H 1 TAB PO DAILY DM TYPE 2 ( Reported) Metoprolol Succinate 50 MG TAB.ER.24H 1 TAB PO BID HTN (Reported) Morphine Sulfate (Morphine Sulfate ER) 15 MG TABLET.ER 1 TAB PO TID PAIN ( Reported) Multivitamin (Daily Multiple Vitamin) 1 EACH TABLET 1 TAB PO DAILY SUPPLEMENT (Reported) Rutin/Hesp/Bioflav/C/Herb#196 (Bioflex Tablet) 40 MG-25 MG-50 MG-500 MG TABLET 1 TAB PO DAILY SUPPLEMENT (Reported) Sitagliptin Phosphate (Januvia) 100 MG TABLET 1 TAB PO DAILY DM TYPE 2 ( Reported) Past History Travel History Traveled to [place] past 21 day No Medical History Neurological: seizure EENT: NONE Cardiovascular: angina, hypertension Respiratory: NONE Gastrointestinal: NONE Hepatic: NONE Renal: NONE Musculoskeletal: osteoarthritis, osteoporosis, R ANKLE FX FRACTURE L ANKLE Psychiatric: NONE Endocrine: diabetes Blood Disorders: anemia Cancer(s): MYELOID DYSPLASIA CANCER HAS PORT R CHEST WALL 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 spouse Services at Home: None Primary Language: Romanian Smoking Status: Never Smoked ETOH Use: denies use Illicit Drug Use: denies illicit drug use Functional Ability ADLs Needs Assist: dressing, eating, toileting, bathing. Ambulation: Bedbound IADLs Independent: finances, telephone, medication admin. Needs Assist: shopping, housework, food prep, transportation. Review of Systems Review of Systems Constitutional: Reports: weakness. Denies: chills, diaphoresis, fever, malaise. EENTM: Denies: no symptoms. Cardiovascular: Reports: chest pain, edema. Denies: orthopena, palpitations, peripheral edema, syncope. Respiratory: Reports: short of breath. Denies: cough, hemoptysis, orthopnea, sputum production, stridor, wheezing. GI: Denies: no symptoms. Genitourinary: Reports: frequency. Musculoskeletal: Reports: joint pain. Skin: Reports: erythema. Neurological/Psychological: Reports: confusion, depressed. Denies: anxiety. Exam & Diagnostic Data Last 24 Hrs of Vital Signs/I&O Vital Signs Date Time Temp Pulse Resp B/P Pulse O2 O2 Flow FiO2 Ox Delivery Rate 09/02 2038 97.5 86 20 123/68 96 Room Air 09/02 1828 78 18 123/58 92 Room Air 09/02 1500 96 Room Air 09/02 1435 90 118/56 09/02 1416 81/56 09/02 1415 88 102/74 09/02 1337 97.7 91 22 123/82 96 Room Air Physical Exam General Appearance Alert, Oriented X3, Cooperative, No Acute Distress Skin small rash on lower back, port on right upper part of chest HEENT Atraumatic, PERRLA, EOMI Neck short and thick Cardiovascular Normal S1, Normal S2 Lungs Clear to Auscultation, Normal Air Movement Abdomen Soft, No Tenderness, distended Neurological Normal Speech Extremities No Clubbing, No Cyanosis, No Edema, left leg is more swollen than right leg Vascular Normal Pulses, Pulses Symmetrical Last 24 Hrs of Labs/Baltazar: Laboratory Tests 09/02/16 2240: Urinalysis MANY H, Urine Color YEL, Urine Clarity HAZY H, Urine pH 6.0, Ur Specific [place] <= 1.005, Urine Protein NEG, Urine Ketones NEG, Urine Nitrite NEG, Urine Bilirubin MOD H, Urine Urobilinogen 0.2, Ur Leukocyte Esterase TRACE H, Ur Microscopic SEDIMENT EXAMINED, Urine RBC RARE, Urine WBC 1-3 H, Ur Epithelial Cells MOD H, Urine Bacteria FEW H, Hyaline Casts RARE H, Granular Casts RARE H, Urine Mucus FEW, Urine Hemoglobin NEG, Urine Glucose NEG 09/02/16 2150: Troponin I < 0.01 09/02/16 1730: Lactic Acid Cancelled 09/02/16 1447: Anion Gap 10, Estimated GFR > 60, BUN/Creatinine Ratio 37.8 H, Glucose 101 H, Hemoglobin A1c Pending, Lactic Acid 1.7, Calcium 10.0, Total Bilirubin 0.7, AST 19, ALT 31, Alkaline Phosphatase 100, Troponin I < 0.01, Total Protein 7.4, Albumin 3.4 L, Globulin 4.0, Albumin/Globulin Ratio 0.9 L, TSH 3.060, D-Dimer 3880 H, CBC w Diff NO MAN DIFF REQ, RBC 3.17 L, MCV 86.3, MCH 29.3, RDW 16.1 H, MPV 6.2 L, Gran % 69.5, Lymphocytes % 20.3 L, Monocytes % 8.4, Eosinophils % 1.6, Basophils % 0.2, Absolute Granulocytes 3.1, Absolute Lymphocytes 0.9 L, Absolute Monocytes 0.4, Absolute Eosinophils 0.1, Absolute Basophils 0, PUBS MCHC 34.0 Microbiology 09/02 2121 LOWER RESP: Respiratory Culture - ORD 09/02 2121 LOWER RESP: Gram Stain - ORD 09/02 1455 BLOOD: Blood Culture - RECD 09/02 1447 BLOOD: Blood Culture - RECD 09/02 1430 BLOOD: Blood Culture - CAN Cancelled: Cancelled via OE: NEED NEW ORDER Diagnostic Data EKG Results Heart rate 56, inverted T waves in V2, V3 and V4, QS complex in lead 3 CXR Results no acute pulmonary disease Assessment/Plan Assessment: Patient is a 56-year-old female with hx of coronary artery disease , history of cardiac catheterization(2010) found to have normal coronaries, hypertension, diastolic heart failure , goiter, seizures (on Keppra and Depakote), osteoarthritis, osteoporosis, type 2 diabetes, anemia, myelodysplastic syndrome presented with chief complaints of generalized weakness, shortness of breath and fatigue associated with light headedness since past 2 weeks. She had chemotherapy in 2005. She is regularly following Dr Baez.When she was in the cancer Center she was found to have low SPO2 of 81% on room air. So she was sent to the hospital for further workup. Vital signs at the time of admission-temperature 97.7, pulse 71, respiratory rate 22, blood pressure 122/82, SPO2 96% on room air Orthostatic hypotension - blood pressure lying -102/70, sitting- 86/54, standing -168/78 EKG showed -corrected 85, T wave inversion in V2, V3 and V4, QS waves in lead III Pertinent labs - hemoglobin 9.3, hematocrit 27.3, BUN 34, glucose 101, calcium 10.0, d-dimer 388 Chest x-ray-no any acute cardiopulmonary abnormality CTA-no evidence of PE, mildly enlarged left subpectoral lymph node, stable right adnexal enlargement Plan - Acute hypoxemic respiratory failure under evaluation - * CTA is negative for PE/pneumonia, although she has many risk factors for PE including obesity, immobility, myelodysplastic syndrome. * We'll admit her into telemetry floor * Will do serial troponins and EKG * We will give oxygen to keep SPO2 more than 92% Orthostatic hypotension * blood pressure lying -102/70, sitting- 86/54, standing -168/78 * She is having poor oral intake along with increase frequency of urination secondary to diuresis. Her mucous membranes are very dry. * We will start her on IV fluids * encourage to increase by mouth intake * Strict intake output charting * Fall precautions * Hold antihypertensive for now Atypical chest pain * EKG showed nonspecific ST-T wave changes * We will do serial troponins and EKG to rule out acute coronary syndrome * We will start her on Omeprazole * Follow echocardiogram * We will place a consult for cardiology in the morning Myelodysplastic syndrome * We place a consult for Dr. Mars for his opinion Type 2 diabetes mellitus * Patient was saying that she had recurrent episodes of hypoglycemia in the range of 50, and she also feels shakes when she has low blood sugar * Recently her insulin has been decreased * We will measure Blood Sugar - TID/HS * According to the sliding scale * We will decrease the dose of Levemir to 20U twice a day Seizures * Continue all home medication including Depakote and keppra Diet - carbohydrate 2 Diet DVT prophylaxis -ALP S/heparin CODE STATUS-full code As Ranked By This Provider Problem List: 1. Orthostatic hypotension 2. Chronic pain 3. Acute electrocardiogram changes 4. Prerenal azotemia Core Measures/Miscellaneous Acute Coronary Syndrome ACS Diagnosis: No Cerebrovascular Accident CVA/TIA Diagnosis: No Congestive Heart Failure CHF Diagnosis: No Venous Thromboembolism VTE Risk Factors: Age > 40, Immobility, paresis, Malignancy Myelo Disorder, Obesity [facility] prophylaxis d/t: No contraindications No VTE Pharm Prophylaxis d/t: No contraindications VTE Diagnosis: No VTE Type: NONE VTE Confirmed by (Test): CT CHEST ANGIOGRAM Severe Sepsis Severe Sepsis Present: No Septic Shock Septic Shock Present: No Miscellaneous Documentation Attending Case Discussed With: TYLER EVANS MD Primary Care Physician: TYLER EVANS MD Patient sees these Specialists Dr Sasha Andrews Level of Patient Care: Telemetry KAL HERNANDEZ 09/02/16 2010: Resident Review Statement Resident Statement: examined this patient, discussed with internet marketing manager, agreed with internet marketing manager, discussed with family, reviewed EMR data (avail), discussed with nursing , discussed with case mgmt, reviewed images, amended to note Other Findings: 56-year-old female with a past medical history of myelodysplastic syndrome follows up with Dr. Baez, diffuse nonspecific ST-T wave changes,seizures diabetes mellitus, goiter, diastolic CHF, angina, hypertension, osteoarthritis, osteoporosis, was sent in by Dr. Baez after she was found to be hypoxic to 81% on room air. History is obtained from the patient as well as the family. According to the patient and the family she's been experiencing increased lethargy, shortness of breath and decreased appetite as well as nausea that has been going on for the past 2-3 weeks now. She made a follow-up appointment with Dr. Baez because last time she felt short of breath she was found to have a decreased blood count and underwent blood transfusion. She saw Dr. Baez this morning and was found to have desaturated to 81% just exerting herself by getting up from a chair and walking a couple of steps. He sent her to the ER for further evaluation. Patient denies any fever, chills however does endorse shortness of breath that has worsened over the past 2-3 weeks now to the point where she gets increasingly short of breath even while walking from the bed to her bathroom. She denies any palpitations, vomiting, feeling lightheaded or dizzy, however does endorse a history of sick contacts stating that her brother has been coughing for a while. She denies any urinary complaints, diarrhea, constipation. She does endorse an excoriation on her back that she attributes to wearing dependable's. Of note she states saw Dr. Maxwell in the office last week and was told that everything was normal. Of note patient has right knee arthritis and is scheduled to undergo knee replacement surgery however she had ankle fractures back in March and is still recovering and undergoing physical therapy for it. Of note patient was recently started on pain medications including morphine sulfate 50 mg 3 times a day as well as hydrocodone about a month ago by Dr. Sarkar. Since then she has been feeling a little foggy. In the ER patient was found to be positive for orthostatic hypotension and very dry on exam together with nonspecific ST-T changes on her EKG is. She is being admitted to telemetry for EKG changes as well as hypotension Vitals at the time of admission blood pressure 123/82, pulse 91, afebrile, respiratory rate 22 saturating 96% on room air. On physical exam she is alert and oriented 3, in no acute distress lying comfortably in bed. HEENT revealed PERRLA, very dry mucous membranes. Examination of the neck did not reveal any JVD or cervical lymphadenopathy. He can't last exam pertinent for normal S1, S2, no murmurs rubs or gallops appreciated. Chest was clear to auscultation bilaterally with decreased breath sounds bilaterally, and portcath noted anteriorly. Abdominal exam was pertinent for splenomegaly, abdomen soft, nontender normal bowel sounds. Examination of extremities revealed left lower extremity much more swollen compared to the right liver tenderness per se. Examination of the back does reveal a 4 cm linear skin excoriation consistent with Of dependent pulse. Labs pertinent for a white blood cell count of 4500, and H&H of 3/27.3 and a normal MCV (0.7. Her platelet count is 286,000. Serum chemistries revealed a sodium of 140, potassium of 4.5, bicarbonate 30, anion gap 10 BUN 34 and creatinine of 0.9. Serum glucose elevated to 101. Serum lactic acid was 1.7. LFTs unremarkable with an AST/SGOT of 19/31, alkaline phosphatase of 100, troponin less than 0.01. D-dimer elevated at 3880. UA not received. Chest x-ray showed no acute pulmonary disease. CTA showed no evidence of acute pulmonary embolism, or suspicious lung nodules. It did show mildly enlarged left subpectoral lymph nodes with stable right adrenal enlargement and stable splenomegaly. Last echocardiogram was done in March 2016 which showed normal left ventricular ejection fraction of 60-65%, minimal aortic sclerosis with no valvular stenosis or insufficiency. There is mild left atrial enlargement with mild/moderate mitral insufficiency and small circumferential pericardial effusion. Of note patient had a cardiac cath in 2010 which showed normal coronaries. Assessment and plan Admit patient to telemetry #Acute hypoxic respiratory failure CTA was done which ruled out pulmonary embolism, patient denies any fever and CT does not reveal any evidence of pneumonia. Could also be secondary to taking increased amounts of pain medications Continue to maintain O2 saturations greater than 92%. Check doplers of LE's to r/o DVT, as LLE>>RLE Pulm consult in am # Chest pain - Atypical. However R/O ACS with trop and EKG at 10:00pm and 4:00am #Generalized weakness in setting of decreased by mouth intake Most likely secondary to dehydration however indolent infections cannot be ruled out. Consider getting an echocardiogram to rule out endocarditis. PT OT eval in a.m. Start her on IV fluids at 75 MLS per hour she's had decreased by mouth intake and has not been drinking much. Patient was orthostat positive. Hold diuretics for now including chlorthialidone and Isosobidemononitrate # History of seizure disorder Continue on Depakote and Keppra #History of insulin-dependent diabetes mellitus Holding metformin and Januvia. Patient is on Levemir 28 units twice a day however blood sugars have been in the 50's in AM recently. For now, will cut down on Levemir to 20 units BID and NovoLog sliding scale Follow-up hemoglobin A1c Accu-Cheks 3 times a day at bedtime Consider Endo consult in am #Hypertension Continue her on amlodipine and losartan as well as metoprolol #GERD Continue on Nexium 40 mg daily - DVT prophylaxis Heparin 5000 international units 3 times a day subcutaneous Diet Consistent carb 3 CODE STATUS Full code SABAS HOLLOWAY,[facility] 09/03/16 0949: Attending MD Review Statement Attending Statement Attending MD Statement: examined this patient, discuss w/resident/PA/BALLET TEACHER, reviewed EMR data (avail)
[2016-09-02 23:09] VITALS: BP 122/82
--- NOTE | 2016-09-03 07:06 | Cons- Hematology ---
General Information and HPI Consulting Request Date of Consult: 09/03/16 Requested By: TYLER EVANS MD History of Present Illness: 56-year-old woman well known to me with a distant history of MDS treated with decitabine. Her course was uncomplicated iron overload secondary transfusions patient underwent phlebotomy therapy. She recently has had a drop in her hematocrit for as yet poorly understood reasons. He demonstrated no GI bleeding and a bone marrow has not been obtained. I saw the patient urgently in the office yesterday for fatigue. Patient denied chest pain or hemoptysis but had significant dyspnea on exertion. She was referred to the emergency room after exertional oxygen saturation was noted to be 81% Allergies/Medications Allergies: Coded Allergies: Penicillins (UNKNOWN 04/01/16) Home Med List: Acetaminophen (Mapap) 500 MG CAPSULE 1 CAP PO PRN PAIN (Reported) Amlodipine Besylate 5 MG TABLET 2 TAB PO DAILY HEART (Reported) Baclofen 10 MG TABLET 1 TAB PO DAILY PRN HEADACHE (Reported) Chlorthalidone 25 MG TABLET 0.5 TAB PO DAILY WATER RETENTION (Reported) Cyproheptadine HCl 4 MG TABLET 2 TAB PO BID PRN alleriges (Reported) Divalproex Sodium (Divalproex Sodium ER) 500 MG TAB.ER.24H 1 TAB PO BID SEIZURES (Reported) Esomeprazole (Nexium) 40 MG CAPSULE.DR 1 CAP PO DAILY GI (Reported) Etodolac 400 MG TABLET 1 TAB PO TID pain (Reported) Fexofenadine HCl (Deana Allergy) 60 MG TABLET 1 TAB PO DAILY PRN ALLERGIES (Reported) Furosemide (Lasix) 40 MG TABLET 1 TAB PO EOD LEG SWELLING (Reported) Hydrocodone/Acetaminophen (Hydrocodon-Acetaminoph 7.5-325) 7.5 MG-325 MG TABLET 1 TAB PO Q8P PRN PAIN (Reported) Insulin Detemir (Levemir Flextouch) 100 UNIT/ML (3 ML) INSULN.PEN 28 UNITS SC 0900 DM TYPE 2 (Reported) Insulin Detemir (Levemir Flextouch) 100 UNIT/ML (3 ML) INSULN.PEN 28 UNITS SC 2000 DM TYPE 2 (Reported) Isosorbide Mononitrate (Isosorbide Mononitrate ER) 30 MG TAB.ER.24H 1 TAB PO DAILY CHEST PAIN (Reported) Levetiracetam 500 MG TABLET 1 TAB PO 4 TIMES/DAY SEIZURES (Reported) Losartan Potassium 50 MG TABLET 1 TAB PO BID HTN (Reported) Metformin HCl (Metformin HCl ER) 500 MG TAB.ER.24H 1 TAB PO DAILY DM TYPE 2 ( Reported) Metoprolol Succinate 50 MG TAB.ER.24H 1 TAB PO BID HTN (Reported) Morphine Sulfate (Morphine Sulfate ER) 15 MG TABLET.ER 1 TAB PO TID PAIN ( Reported) Multivitamin (Daily Multiple Vitamin) 1 EACH TABLET 1 TAB PO DAILY SUPPLEMENT (Reported) Rutin/Hesp/Bioflav/C/Herb#196 (Bioflex Tablet) 40 MG-25 MG-50 MG-500 MG TABLET 1 TAB PO DAILY SUPPLEMENT (Reported) Sitagliptin Phosphate (Januvia) 100 MG TABLET 1 TAB PO DAILY DM TYPE 2 ( Reported) Current Medications: Current Medications Sig/Emile Start time Last Medication Dose Route Stop Time Status Admin Acetaminophen 650 MG Q4P PRN 09/02 2199 AC PO Acetaminophen/ 15 ML Q8P PRN 09/02 2145 AC 09/03 Hydrocodone Bitart PO 22 Amlodipine Besylate 10 MG DAILY 09/03 1000 AC PO Azithromycin 1,000 MG ONCE ONE 09/02 1944 CAN PO 09/02 1945 Ceftriaxone Sodium 250 MG ONCE ONE 09/02 1944 CAN IM 09/02 1945 Divalproex Sodium 500 MG BID 09/02 2199 AC 09/02 PO 215 Fluconazole 150 MG ONCE ONE 09/02 1944 CAN PO 09/02 1945 Heparin Sodium 0 .STK-MED ONE 09/02 2210 DC (Porcine) .ROUTE Heparin Sodium 5,000 UNIT Q8 09/02 2199 AC 09/03 (Porcine) SC 0610 Ibuprofen 0 .STK-MED ONE 09/02 2210 DC PO Ibuprofen 400 MG TID 09/02 2199 AC 09/02 PO 221 Insulin Aspart 0 TIDAC 09/03 0800 AC SC Insulin Detemir 20 UNITS BID 09/03 1000 AC 09/03 SC 0023 Insulin Detemir 28 UNITS BID 09/02 2199 DC SC Levetiracetam 500 MG 4 TIMES/DAY 09/02 220 AC 09/02 PO 2210 Losartan Potassium 50 MG DAILY 09/03 1000 AC PO Metoprolol Succinate 50 MG BID 09/02 2199 AC 09/03 PO 0023 Morphine Sulfate 15 MG TID 09/02 2199 CAN IV Morphine Sulfate 15 MG TID 09/02 2200 CAN PO Morphine Sulfate 15 MG BID 09/02 2200 AC 09/03 PO 0023 Morphine Sulfate 15 MG ONCE ONE 09/02 1845 DC 09/02 PO 09/02 1846 1845 Multivitamins 1 TAB DAILY 09/03 1000 AC Therapeutic PO Omeprazole 40 MG DAILY AC 09/03 0700 AC 09/03 PO 0611 Ondansetron HCl 0 .STK-MED ONE 09/02 1503 DC .ROUTE Ondansetron HCl 4 MG ONCE ONE 09/02 1430 DC 09/02 IV 09/02 1431 1500 Sodium Chloride 1,000 ML Q13H 09/02 2130 AC IV 09/03 1029 Sodium Chloride 1,000 ML .Q6H40M 09/02 2000 DC 09/03 IV 09/03 0239 0022 Sodium Chloride 1,000 ML BOLUS ONE 09/02 1430 DC 09/02 IV 09/02 1529 1500 Review of Systems Review of Systems: Patient denies headaches or significant dizziness. Patient denies nausea vomiting diarrhea or change in bowel habits (previous stool testing negative for occult blood). Patient denies dysuria hematuria. Patient denies new bone aches. Patient denies focal neurologic deficit. 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 spouse Services at Home: None Primary Language: Thai Smoking Status: Never Smoked ETOH Use: denies use Illicit Drug Use: denies illicit drug use Functional Ability ADLs Needs Assist: dressing, eating, toileting, bathing. Ambulation: Bedbound IADLs Independent: finances, telephone, medication admin. Needs Assist: shopping, housework, food prep, transportation. Exam & Diagnostic Data Vital Signs and I&O Vital Signs Date Time Temp Pulse Resp B/P Pulse O2 O2 Flow FiO2 Ox Delivery Rate 09/03 0023 68 122/82 09/02 2308 98.2 80 20 122/82 97 Room Air 09/02 2038 97.5 86 20 123/68 96 Room Air 09/02 1828 78 18 123/58 92 Room Air 09/02 1500 96 Room Air 09/02 1435 90 118/56 09/02 1416 81/56 09/02 1415 88 102/74 09/02 1337 97.7 91 22 123/82 96 Room Air Gen.: in NAD ENT: Sclera anicteric Chest: Normal respiratory effort, decreased breath sounds Cor: RRR, no extra sounds Abdomen: Soft, bowel sounds present, no tenderness, no masses Extremities: Without clubbing, cyanosis, or asymmetric edema Neurology: Alert and oriented 3, no gross deficit Skin: No rashes Last 48 Hours of Lab Results: Laboratory Tests 09/03 09/03 09/02 0545 0545 2240 Chemistry Sodium (137 - 145 mmol/L) 141 Potassium (3.5 - 5.1 mmol/L) 4.5 Chloride (98 - 107 mmol/L) 104 Carbon Dioxide (22 - 30 mmol/L) 30 Anion Gap (5 - 16) 7 BUN (7 - 17 mg/dL) 24 H Creatinine (0.5 - 1.0 mg/dL) 0.6 Estimated GFR (>60 ml/min) > 60 BUN/Creatinine Ratio (7 - 25 %) 40.0 H Ammonia (9 - 30 umol/L) < 9 L Troponin I Pending Hematology CBC w Diff Pending WBC Pending RBC Pending Hgb Pending Hct Pending MCV Pending MCH Pending RDW Pending Plt Count Pending MPV Pending PUBS MCHC Pending Urines Urinalysis MANY H Urine Color (YEL,AMB,STR) YEL Urine Clarity (CLEAR) HAZY H Urine pH (5.0 - 8.0) 6.0 Ur Specific [place] (1.001 - 1.035) <= 1.005 Urine Protein (NEG,<30 MG/DL) NEG Urine Ketones (NEG) NEG Urine Nitrite (NEG) NEG Urine Bilirubin (NEG) MOD H Urine Urobilinogen (0.1 - 1.0 EU/dl) 0.2 Ur Leukocyte Esterase (NEG) TRACE H Ur Microscopic SEDIMENT EXAMINED Urine RBC (0 - 5 /HPF) RARE Urine WBC (0 - 2 /HPF) 1-3 H Ur Epithelial Cells (NONE,FEW) MOD H Urine Bacteria (NEG/NONE) FEW H Hyaline Casts (0/LPF) RARE H Granular Casts (NONE /LPF) RARE H Urine Mucus (FEW,NONE) FEW Urine Hemoglobin (NEG) NEG Urine Glucose (N MG/DL) NEG 09/02 09/02 09/02 2150 1730 1447 Chemistry Sodium (137 - 145 mmol/L) 140 Potassium (3.5 - 5.1 mmol/L) 4.5 Chloride (98 - 107 mmol/L) 99 Carbon Dioxide (22 - 30 mmol/L) 30 Anion Gap (5 - 16) 10 BUN (7 - 17 mg/dL) 34 H Creatinine (0.5 - 1.0 mg/dL) 0.9 Estimated GFR (>60 ml/min) > 60 BUN/Creatinine Ratio (7 - 25 %) 37.8 H Glucose (65 - 99 mg/dL) 101 H Hemoglobin A1c (4.2 - 5.8 %) Pending Lactic Acid (0.7 - 2.1 mmol/L) Cancelled 1.7 Calcium (8.4 - 10.2 mg/dL) 10.0 Total Bilirubin (0.2 - 1.3 mg/dL) 0.7 AST (14 - 36 U/L) 19 ALT (9 - 52 U/L) 31 Alkaline Phosphatase (<127 U/L) 100 Troponin I (< 0.11 ng/ml) < 0.01 < 0.01 Total Protein (6.3 - 8.2 g/dL) 7.4 Albumin (3.5 - 5.0 g/dL) 3.4 L Globulin (1.9 - 4.2 gm/dL) 4.0 Albumin/Globulin Ratio (1.1 - 2.2 %) 0.9 L TSH (0.270 - 4.200 uIU/mL) 3.060 Coagulation D-Dimer (70 - 232 ng/ml) 3880 H Hematology CBC w Diff NO MAN DIFF REQ WBC (4.8 - 10.8 /CUMM) 4.5 L RBC (4.20 - 5.40 /CUMM) 3.17 L Hgb (12.0 - 16.0 G/DL) 9.3 L Hct (37 - 47 %) 27.3 L MCV (81.0 - 99.0 FL) 86.3 MCH (27.0 - 31.0 PG) 29.3 RDW (11.5 - 14.5 %) 16.1 H Plt Count (130 - 400 /CUMM) 286 MPV (7.4 - 10.4 FL) 6.2 L Gran % (42.2 - 75.2 %) 69.5 Lymphocytes % (20.5 - 51.1 %) 20.3 L Monocytes % (1.7 - 9.3 %) 8.4 Eosinophils % (0 - 5 %) 1.6 Basophils % (0.0 - 2.0 %) 0.2 Absolute Granulocytes (1.4 - 6.5 /CUMM) 3.1 Absolute Lymphocytes (1.2 - 3.4 /CUMM) 0.9 L Absolute Monocytes (0.10 - 0.60 /CUMM) 0.4 Absolute Eosinophils (0.0 - 0.7 /CUMM) 0.1 Absolute Basophils (0.0 - 0.2 /CUMM) 0 PUBS MCHC (33.0 - 37.0 G/DL) 34.0 Imaging/Other Studies: CTA-no pulmonary emboli Assessment/Plan Assessment: 1. Respiratory compromise-anemia would not explain exertional desaturation. No pulmonary emboli were discovered on CTA of the chest. Recommend-as per cardiology and pulmonary services 2. MDS-issues current hematocrit is lower than baseline but cannot explain her desaturation. No immediate plans to repeat a bone marrow aspiration biopsy. Follow CBC I have discussed this with the patient and her Recommendations: .. Consult Acknowledgment - Thank you for your consult request.
--- NOTE | 2016-09-03 07:24 | PN- Housestaff ---
Subjective Follow-up For: 1. Shortness of breath 2. Atypical chest pain 3. Generalized weakness 4. History of seizure disorder Tele-Events Since Last Visit: Normal sinus rhythm between 69-86, no events Subjective: The patient seems very low, is alert awake and oriented and answers appropriately but seems depressed and most of the conversation is being carried out by her who is at bedside. The patient reports feeling very tired and short of breath especially on exertion. The hospital with reported decreased appetite and the patient feeling off since the past few days. Review of Systems Constitutional: Reports: see HPI. Cardiovascular: Reports: chest pain. Respiratory: Reports: short of breath. Gastrointestinal: Reports: no symptoms. Musculoskeletal: Reports: see HPI. Objective Last 24 Hrs of Vital Signs/I&O Vital Signs Date Time Temp Pulse Resp B/P Pulse O2 O2 Flow FiO2 Ox Delivery Rate 09/03 1012 68 122/82 09/03 1012 68 122/82 09/03 1011 68 122/82 09/03 0800 98.2 77 20 104/60 94 Room Air 09/03 0023 68 122/82 09/02 2309 98.2 80 20 122/82 97 Room Air 09/02 2039 97.5 86 20 123/68 96 Room Air 09/02 1828 78 18 123/58 92 Room Air 09/02 1500 96 Room Air Intake & Output 09/03 1600 09/03 0800 09/03 0000 Intake Total 1375 Output Total 400 Balance -400 1375 Intake, IV 975 Intake, Oral 400 Output, Urine 400 Patient 247 lb Weight Physical Exam General Appearance: Alert, Oriented X3, Cooperative, No Acute Distress, very sluggish, feeling depressed, obese Cardiovascular: Regular Rate, Normal S1, Normal S2, No Murmurs Lungs: Clear to Auscultation, Normal Air Movement Abdomen: Normal Bowel Sounds, Soft, No Tenderness Neurological: Normal Speech, Strength at 5/5 X4 Ext, Normal Tone, Sensation Intact Extremities: Normal Pulses, trace pedal edema Assessment/Plan Assessment: 56-year-old woman with past medical history myelodysplastic syndrome status post chemotherapy, follows Dr. Burger, history of seizure disorder, insulin-dependent diabetes mellitus, history of goiter, history of diastolic CHF, history of angina, history of hypertension, osteoarthritis, presents with dyspnea on minimal exertion, and hypoxia 81% on room air. Assessment and plan: 1. Shortness of breath/acute hypoxic respiratory failure: - The patient presented with shortness of breath, even on minimal exertion, and hypoxia to 81% on room air however currently she saturating at 94% on room air - The lungs are clear, there is no evidence of leukocytosis of pneumonia, clinically it does not seem to be in heart failure with no JVD, clear lungs on auscultation and trace pitting edema - The patient has a history of MDS or akinesis as baseline - The patient has been evaluated by Dr. Baez. Anemia does not seem to be contributing to her shortness of breath - We'll check ambulatory oxygen saturations in room air. - Patient is not requiring oxygen as of now we will continue to monitor - Cardiology evaluate for cardio classes/heart failure - We'll check iron studies 2. Atypical chest pain: - The patient presented with chest pain however does not complain of chest pain in the morning when I evaluated the patient - 2 sets of troponins and EKGs have been negative - Pending echocardiogram 3. Generalized weakness: - The patient has increased weakness and decreased oral intake. Patient has a shrimp he is status post chemotherapy and history of rectal - We'll encourage by mouth intake - Continue with gentle hydration - Patient's blood pressure has been was therefore withhold her antihypertensive diuretic for now - We will also get physical therapy involved 4. History of hypertension: - Patient wasn't 80s at one time, hydrochlorothiazide has been held - Check orthostatics - The blood pressure continues to remain stable in the 120s on losartan, amlodipine and metoprolol 5. Insulin-dependent diabetes mellitus: - Sugars were improved with endorse that the decreased hematocrit 15 twice a day and monitor 6. History of seizures: - We'll continue with Keppra 500 mg 4 times a day 7. Diabetic diet 8. Subcutaneous heparin for DVT prophylaxis 9. FULL CODE Problem List: 1. MDS (myelodysplastic syndrome) 2. Shortness of breath 3. Chronic pain Pain Ratin Pain Location: No pain at this time Pain Goal: Remain pain free Pain Plan: When necessary Tylenol and Percocet Tomorrow's Labs & Rationales: CBC to monitor neutropenia DVT/Prophylaxis: pharmacological Consulting Request: 1 Consulting Specialty: Cardiology Consulting Physician: Bean Mistry MD Reason for Consult: shortness of breath Consulting Request: 2 Consulting Specialty: Hematology/Oncology Consulting Physician: Dr. Burger Reason for Consult: MDS/shortness of breath
[2016-09-03 07:53] LABS: ABSOLUTE BASOPHIL COUNT 0 /CUMM (0.0-0.2); ABSOLUTE EOSINOPHIL COUNT 0.1 /CUMM (0.0-0.7); ABSOLUTE GRANULOCYTE CT 1.9 /CUMM (1.4-6.5); ABSOLUTE MONOCYTE COUNT 0.3 /CUMM (0.10-0.60); BASOPHIL % 0.8 % (0.0-2.0); EOSINOPHIL % 2.7 % (0-5); GRANULOCYTE % 57.8 % (42.2-75.2); HEMATOCRIT 25.5 % (37-47); MEAN CORPUSCULAR HGB 29.2 PG (27.0-31.0); MEAN CORPUSCULAR HGB CONC 33.1 G/DL (33.0-37.0); MEAN CORPUSCULAR VOLUME 88.3 FL (81.0-99.0); MEAN PLATELET VOLUME 6.7 FL (7.4-10.4); PLATELET COUNT 248 /CUMM (130-400); RBC DISTRIBUTION WIDTH 16.1 % (11.5-14.5); RED BLOOD CELL CT 2.89 /CUMM (4.20-5.40); WHITE BLOOD CELL COUNT 3.3 /CUMM (4.8-10.8)
[2016-09-03 08:00] VITALS: BP 104/60
--- NOTE | 2016-09-03 09:48 | PN- Att Addend ---
Attending Addendum Attending Brief Note Patient this morning has no complaints and she is currently on room air. However she does complain of shortness of breath with minimal exertion. General Appearance: Alert, No Acute Distress Skin: Grossly normal HEENT: [place]ER[place] Neck: Supple, No JVD Cardiovascular: Regular Rate, Normal S1, Normal S2, No Murmurs Lungs: Clear to Auscultation, Normal Air Movement Abdomen: Normal Bowel Sounds, Soft, No Tenderness Neurological: Normal Speech, Strength at 5/5 X4 Ext, Cranial Nerves 3-12 NL, Reflexes 2+ Extremities: Trace pedal edema. Speeded edema Vascular: Normal Pulses Assessment 56-year-old with history of coronary artery disease, hypertension, diastolic heart failure, history of goiter, seizures in the past, type 2 diabetes and myelodysplastic syndrome status post chemotherapy presenting with shortness of breath with minimal exertion. Patient was saturating at 81% on minimal exertion. CTA was negative but she has significant anemia that is worse from her baseline although anemia and does not completely explain her symptoms. Her last echo was in March 2016 with preserved ejection fraction and patient does not appear to be in decompensated heart failure. Suspect shortness of breath could be multifactorial including obesity hypoventilation the setting of worsening of anemia. However we must rule out cardiac causes and get an echocardiogram. Patient had orthostatic hypotension and initial low blood pressure on presentation. We'll repeat orthostatics and reassess. Noted blood sugar level extremely low. Plan Repeat orthostatics Echocardiogram Cardiology consult Check iron studies Guaiac stools Decrease Levemir to 15 units twice a day Check hemoglobin A1c Repeat ambulatory oxygen levels. Continue other home meds DVT prophylaxis Current Medications Sig/Emile Start time Last Medication Dose Route Stop Time Status Admin Acetaminophen 650 MG Q4P PRN 09/020 AC PO Acetaminophen/ 15 ML Q8P PRN 09/02 2145 AC 09/03 Hydrocodone Bitart PO 0023 Amlodipine Besylate 10 MG DAILY 09/03 1000 AC PO Azithromycin 1,000 MG ONCE ONE 09/02 1944 CAN PO 09/02 1945 Ceftriaxone Sodium 250 MG ONCE ONE 09/02 1944 CAN IM 09/02 1945 Divalproex Sodium 500 MG BID 09/020 AC 09/02 PO 2156 Fluconazole 150 MG ONCE ONE 09/02 1944 CAN PO 09/02 1945 Heparin Sodium 0 .STK-MED ONE 09/02 2211 DC (Porcine) .ROUTE Heparin Sodium 5,000 UNIT Q8 09/02 2200 AC 09/03 (Porcine) SC 0610 Ibuprofen 0 .STK-MED ONE 09/02 2211 DC PO Ibuprofen 400 MG TID 09/02 2200 AC 09/02 PO 2210 Insulin Aspart 0 TIDAC 09/03 0800 AC SC Insulin Detemir 20 UNITS BID 09/03 1000 AC 09/03 SC 0023 Insulin Detemir 28 UNITS BID 09/02 2200 DC SC Levetiracetam 500 MG 4 TIMES/DAY 09/02 2200 AC 09/02 PO 2210 Losartan Potassium 50 MG DAILY 09/03 1000 AC PO Metoprolol Succinate 50 MG BID 09/02 2200 AC 09/03 PO 0023 Morphine Sulfate 15 MG TID 09/02 220 CAN IV Morphine Sulfate 15 MG TID 09/02 220 CAN PO Morphine Sulfate 15 MG BID 09/02 2200 AC 09/03 PO 0023 Morphine Sulfate 15 MG ONCE ONE 09/02 1845 DC 09/02 PO 09/02 1846 1845 Multivitamins 1 TAB DAILY 09/03 1000 AC Therapeutic PO Omeprazole 40 MG DAILY AC 09/03 0700 AC 09/03 PO 0611 Ondansetron HCl 0 .STK-MED ONE 09/02 1503 DC .ROUTE Ondansetron HCl 4 MG ONCE ONE 09/02 1430 DC 09/02 IV 09/02 1431 1500 Sodium Chloride 1,000 ML Q13H 09/02 2130 AC 09/03 IV 09/03 1029 0809 Sodium Chloride 1,000 ML .Q6H40M 09/02 2000 DC 09/03 IV 09/03 0239 0022 Sodium Chloride 1,000 ML BOLUS ONE 09/02 1430 DC 09/02 IV 09/02 1529 1500 Laboratory Tests 09/03 09/03 0545 0545 Chemistry Sodium (137 - 145 mmol/L) 141 Potassium (3.5 - 5.1 mmol/L) 4.5 Chloride (98 - 107 mmol/L) 104 Carbon Dioxide (22 - 30 mmol/L) 30 Anion Gap (5 - 16) 7 BUN (7 - 17 mg/dL) 24 H Creatinine (0.5 - 1.0 mg/dL) 0.6 Estimated GFR (>60 ml/min) > 60 BUN/Creatinine Ratio (7 - 25 %) 40.0 H Ammonia (9 - 30 umol/L) < 9 L Troponin I (< 0.11 ng/ml) < 0.01 Hematology CBC w Diff NO MAN DIFF REQ WBC (4.8 - 10.8 /CUMM) 3.3 L RBC (4.20 - 5.40 /CUMM) 2.89 L Hgb (12.0 - 16.0 G/DL) 8.4 L Hct (37 - 47 %) 25.5 L MCV (81.0 - 99.0 FL) 88.3 MCH (27.0 - 31.0 PG) 29.2 RDW (11.5 - 14.5 %) 16.1 H Plt Count (130 - 400 /CUMM) 248 MPV (7.4 - 10.4 FL) 6.7 L Gran % (42.2 - 75.2 %) 57.8 Lymphocytes % (20.5 - 51.1 %) 30.4 Monocytes % (1.7 - 9.3 %) 8.3 Eosinophils % (0 - 5 %) 2.7 Basophils % (0.0 - 2.0 %) 0.8 Absolute Granulocytes (1.4 - 6.5 /CUMM) 1.9 Absolute Lymphocytes (1.2 - 3.4 /CUMM) 1.0 L Absolute Monocytes (0.10 - 0.60 /CUMM) 0.3 Absolute Eosinophils (0.0 - 0.7 /CUMM) 0.1 Absolute Basophils (0.0 - 0.2 /CUMM) 0 PUBS MCHC (33.0 - 37.0 G/DL) 33.1 09/02 09/02 09/02 2240 2150 1730 Chemistry Lactic Acid Cancelled Troponin I (< 0.11 ng/ml) < 0.01 Urines Urinalysis MANY H Urine Color (YEL,AMB,STR) YEL Urine Clarity (CLEAR) HAZY H Urine pH (5.0 - 8.0) 6.0 Ur Specific [place] (1.001 - 1.035) <= 1.005 Urine Protein (NEG,<30 MG/DL) NEG Urine Ketones (NEG) NEG Urine Nitrite (NEG) NEG Urine Bilirubin (NEG) MOD H Urine Urobilinogen (0.1 - 1.0 EU/dl) 0.2 Ur Leukocyte Esterase (NEG) TRACE H Ur Microscopic SEDIMENT EXAMINED Urine RBC (0 - 5 /HPF) RARE Urine WBC (0 - 2 /HPF) 1-3 H Ur Epithelial Cells (NONE,FEW) MOD H Urine Bacteria (NEG/NONE) FEW H Hyaline Casts (0/LPF) RARE H Granular Casts (NONE /LPF) RARE H Urine Mucus (FEW,NONE) FEW Urine Hemoglobin (NEG) NEG Urine Glucose (N MG/DL) NEG 09/02 1447 Chemistry Sodium (137 - 145 mmol/L) 140 Potassium (3.5 - 5.1 mmol/L) 4.5 Chloride (98 - 107 mmol/L) 99 Carbon Dioxide (22 - 30 mmol/L) 30 Anion Gap (5 - 16) 10 BUN (7 - 17 mg/dL) 34 H Creatinine (0.5 - 1.0 mg/dL) 0.9 Estimated GFR (>60 ml/min) > 60 BUN/Creatinine Ratio (7 - 25 %) 37.8 H Glucose (65 - 99 mg/dL) 101 H Hemoglobin A1c (4.2 - 5.8 %) Pending Lactic Acid (0.7 - 2.1 mmol/L) 1.7 Calcium (8.4 - 10.2 mg/dL) 10.0 Total Bilirubin (0.2 - 1.3 mg/dL) 0.7 AST (14 - 36 U/L) 19 ALT (9 - 52 U/L) 31 Alkaline Phosphatase (<127 U/L) 100 Troponin I (< 0.11 ng/ml) < 0.01 Total Protein (6.3 - 8.2 g/dL) 7.4 Albumin (3.5 - 5.0 g/dL) 3.4 L Globulin (1.9 - 4.2 gm/dL) 4.0 Albumin/Globulin Ratio (1.1 - 2.2 %) 0.9 L TSH (0.270 - 4.200 uIU/mL) 3.060 Coagulation D-Dimer (70 - 232 ng/ml) 3880 H Hematology CBC w Diff NO MAN DIFF REQ WBC (4.8 - 10.8 /CUMM) 4.5 L RBC (4.20 - 5.40 /CUMM) 3.17 L Hgb (12.0 - 16.0 G/DL) 9.3 L Hct (37 - 47 %) 27.3 L MCV (81.0 - 99.0 FL) 86.3 MCH (27.0 - 31.0 PG) 29.3 RDW (11.5 - 14.5 %) 16.1 H Plt Count (130 - 400 /CUMM) 286 MPV (7.4 - 10.4 FL) 6.2 L Gran % (42.2 - 75.2 %) 69.5 Lymphocytes % (20.5 - 51.1 %) 20.3 L Monocytes % (1.7 - 9.3 %) 8.4 Eosinophils % (0 - 5 %) 1.6 Basophils % (0.0 - 2.0 %) 0.2 Absolute Granulocytes (1.4 - 6.5 /CUMM) 3.1 Absolute Lymphocytes (1.2 - 3.4 /CUMM) 0.9 L Absolute Monocytes (0.10 - 0.60 /CUMM) 0.4 Absolute Eosinophils (0.0 - 0.7 /CUMM) 0.1 Absolute Basophils (0.0 - 0.2 /CUMM) 0 PUBS MCHC (33.0 - 37.0 G/DL) 34.0 Vital Signs Date Time Temp Pulse Resp B/P Pulse O2 O2 Flow FiO2 Ox Delivery Rate 09/03 0023 68 122/82 09/02 2309 98.2 80 20 122/82 97 Room Air 09/02 2039 97.5 86 20 123/68 96 Room Air 09/02 1828 78 18 123/58 92 Room Air 09/02 1500 96 Room Air 09/02 1435 90 118/56 09/02 1416 81/56 09/02 1415 88 102/74 09/02 1337 97.7 91 22 123/82 96 Room Air
--- NOTE | 2016-09-03 09:49 | Admission Certification ---
Admission Certification Certification Statement - As attending physician, I certify that at the time of - admission, based on clinical presentation, severity of - symptoms, need for further diagnostic testing and - therapeutic interventions, and risk of adverse outcomes - without in-hospital treatment, in my clinical assessment, - this patient requires an acute hospital stay for a minimum - of two nights or longer. I have also considered psychsocial - factors such as support system, advanced age, financial - issues, cognitive issues, and failed out-patient treatments, - past re-admission history, safety of patient, and lack of - compliance as applicable. Specific rationale supporting this admission is: Shortness of breath and anemia
--- NOTE | 2016-09-03 11:18 | ULTRASOUND REPORT ---
EXAMINATION: US TRIPLEX LOWER EXTREMITY, BILATERAL CLINICAL INFORMATION: Bilateral lower extremity edema COMPARISON: 11/26/2011 TECHNIQUE: Color-flow triplex imaging with spectral analysis and compression Doppler were performed on the bilateral lower extremities. FINDINGS: Respiratory variation, normal compression and augmented flow are noted throughout the bilateral lower extremities. The visualized common femoral vein, superficial femoral vein, profunda femoral vein, popliteal vein and midcalf peroneal and posterior tibial venous segments show no evidence of deep venous thrombosis. There is no San's cyst. IMPRESSION: Normal triplex scan without evidence of deep venous thrombosis involving the bilateral lower extremities.
[2016-09-03 15:30] VITALS: BP 120/68
--- NOTE | 2016-09-03 18:49 | Cons- Cardiology ---
General Information and HPI Consulting Request Date of Consult: 09/03/16 Requested By: TYLER EVANS MD History of Present Illness: Patient is a 56-year-old female with history of diabetes mellitus, hypertension, myelodysplastic syndrome, and history of high output heart failure the past secondary to anemia. She is followed by Dr. Mistry for her cardiology issues. While at the cancer center she complained of shortness of breath, and she was noted to have decreased oxygen saturation of 81% after ambulation. She complains of lethargy for the past 2-3 weeks. She reports that several days ago she had an episode of substernal sharp chest pain which felt like a stabbing sensation. This pain was moderate in severity and resolved within a few minutes. She is not currently having any chest pain. No syncope. No orthopnea. No diaphoresis. No lightheadedness or dizziness. No nausea or vomiting. Allergies/Medications Allergies: Coded Allergies: Penicillins (UNKNOWN 04/01/16) Home Med List: Acetaminophen (Mapap) 500 MG CAPSULE 1 CAP PO PRN PAIN (Reported) Amlodipine Besylate 5 MG TABLET 2 TAB PO DAILY HEART (Reported) Baclofen 10 MG TABLET 1 TAB PO DAILY PRN HEADACHE (Reported) Chlorthalidone 25 MG TABLET 0.5 TAB PO DAILY WATER RETENTION (Reported) Cyproheptadine HCl 4 MG TABLET 2 TAB PO BID PRN alleriges (Reported) Divalproex Sodium (Divalproex Sodium ER) 500 MG TAB.ER.24H 1 TAB PO BID SEIZURES (Reported) Esomeprazole (Nexium) 40 MG CAPSULE.DR 1 CAP PO DAILY GI (Reported) Etodolac 400 MG TABLET 1 TAB PO TID pain (Reported) Fexofenadine HCl (Deana Allergy) 60 MG TABLET 1 TAB PO DAILY PRN ALLERGIES (Reported) Furosemide (Lasix) 40 MG TABLET 1 TAB PO EOD LEG SWELLING (Reported) Hydrocodone/Acetaminophen (Hydrocodon-Acetaminoph 7.5-325) 7.5 MG-325 MG TABLET 1 TAB PO Q8P PRN PAIN (Reported) Insulin Detemir (Levemir Flextouch) 100 UNIT/ML (3 ML) INSULN.PEN 28 UNITS SC 0900 DM TYPE 2 (Reported) Insulin Detemir (Levemir Flextouch) 100 UNIT/ML (3 ML) INSULN.PEN 28 UNITS SC 2000 DM TYPE 2 (Reported) Isosorbide Mononitrate (Isosorbide Mononitrate ER) 30 MG TAB.ER.24H 1 TAB PO DAILY CHEST PAIN (Reported) Levetiracetam 500 MG TABLET 1 TAB PO 4 TIMES/DAY SEIZURES (Reported) Losartan Potassium 50 MG TABLET 1 TAB PO BID HTN (Reported) Metformin HCl (Metformin HCl ER) 500 MG TAB.ER.24H 1 TAB PO DAILY DM TYPE 2 ( Reported) Metoprolol Succinate 50 MG TAB.ER.24H 1 TAB PO BID HTN (Reported) Morphine Sulfate (Morphine Sulfate ER) 15 MG TABLET.ER 1 TAB PO TID PAIN ( Reported) Multivitamin (Daily Multiple Vitamin) 1 EACH TABLET 1 TAB PO DAILY SUPPLEMENT (Reported) Rutin/Hesp/Bioflav/C/Herb#196 (Bioflex Tablet) 40 MG-25 MG-50 MG-500 MG TABLET 1 TAB PO DAILY SUPPLEMENT (Reported) Sitagliptin Phosphate (Januvia) 100 MG TABLET 1 TAB PO DAILY DM TYPE 2 ( Reported) Current Medications: Current Medications Sig/Emile Start time Last Medication Dose Route Stop Time Status Admin Acetaminophen 650 MG Q4P PRN 09/02 2199 AC PO Acetaminophen/ 15 ML Q8P PRN 09/02 2145 AC 09/03 Hydrocodone Bitart PO 0023 Amlodipine Besylate 10 MG DAILY 09/03 1000 AC 09/03 PO 1012 Azithromycin 1,000 MG ONCE ONE 09/02 1944 CAN PO 09/02 1945 Ceftriaxone Sodium 250 MG ONCE ONE 09/02 1944 CAN IM 09/02 1945 Divalproex Sodium 500 MG BID 09/02 2199 AC 09/03 PO 101 Fluconazole 150 MG ONCE ONE 09/02 1944 CAN PO 09/02 1945 Heparin Sodium 0 .STK-MED ONE 09/02 2210 DC (Porcine) .ROUTE Heparin Sodium 5,000 UNIT Q8 09/02 2199 AC 09/03 (Porcine) SC 1457 Ibuprofen 0 .STK-MED ONE 09/02 2210 DC PO Ibuprofen 400 MG TID 09/02 2199 AC 09/03 PO 1723 Insulin Aspart 0 TIDAC 09/03 0800 AC SC Insulin Detemir 15 UNITS BID 09/03 2200 AC SC Insulin Detemir 20 UNITS BID 09/03 1000 DC 09/03 SC 1011 Insulin Detemir 28 UNITS BID 09/02 2200 DC SC Levetiracetam 500 MG 4 TIMES/DAY 09/02 2200 AC 09/03 PO 1724 Losartan Potassium 50 MG DAILY 09/03 1000 AC 09/03 PO 1011 Metoprolol Succinate 50 MG BID 09/02 2200 AC 09/03 PO 1012 Morphine Sulfate 15 MG TID 09/02 2200 CAN IV Morphine Sulfate 15 MG TID 09/02 2200 CAN PO Morphine Sulfate 15 MG BID 09/02 2200 AC 09/03 PO 1010 Multivitamins 1 TAB DAILY 09/03 1000 AC 09/03 Therapeutic PO 1012 Omeprazole 40 MG DAILY AC 09/03 0700 AC 09/03 PO 0611 Patient Medication 1 ED .STK-MED ONE 09/03 1404 DC Teaching ED 09/03 1405 Sodium Chloride 1,000 ML Q13H 09/02 2130 DC 09/03 IV 09/03 1029 0809 Sodium Chloride 1,000 ML .Q6H40M 09/02 2000 DC 09/03 IV 09/03 0239 0022 Review of Systems Review of Systems: No rash. No tremor. No melena. No fever. All other systems were reviewed, and were noted to be negative. 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 Home Who Do You Live With? spouse Services at Home: None Primary Language: Chinese Smoking Status: Never Smoked ETOH Use: denies use Illicit Drug Use: denies illicit drug use Functional Ability ADLs Needs Assist: dressing, eating, toileting, bathing. Ambulation: Bedbound IADLs Independent: finances, telephone, medication admin. Needs Assist: shopping, housework, food prep, transportation. Exam & Diagnostic Data Vital Signs and I&O Vital Signs Date Time Temp Pulse Resp B/P Pulse O2 O2 Flow FiO2 Ox Delivery Rate 09/03 1846 Room Air 09/03 1531 Room Air 09/03 1530 99.6 82 18 120/68 95 Room Air 09/03 1512 Room Air 09/03 1012 68 122/82 09/03 1012 68 122/82 09/03 1011 68 122/82 09/03 0800 98.2 77 20 104/60 94 Room Air 09/03 0023 68 122/82 09/02 2309 98.2 80 20 122/82 97 Room Air 09/02 2039 97.5 86 20 123/68 96 Room Air Intake & Output 09/03 1600 09/03 0800 09/03 0000 09/02 1600 09/02 0800 09/02 0000 Intake Total 1220 1375 Output Total 800 Balance 420 1375 Intake, IV 600 975 Intake, Oral 620 400 Output, Urine 800 Patient 247 lb Weight Physical Exam: Gen: The patient is in no acute distress HEENT: Normal nose, ears, and oropharynx. Pupils equal bilaterally. Conjunctiva normal. Neck: Supple with no JVD, no masses, and no thyromegaly Lungs: Clear to auscultation with normal respiratory effort Heart: RRR, S1, S2, no murmurs. 1+ peripheral edema, left greater than right, 1 + pulses in the lower extremities bilaterally Abdomen: Soft, nontender, no masses. No hepatomegaly. No splenomegaly Extremities: No clubbing or cyanosis. Normal muscle strength in the upper and lower extremities Skin: Normal skin turgor with no skin ulcers or lesions noted. Neuro: Cranial nerves intact. Sensation intact Psych: Alert and oriented 3 with appropriate affect Labs/Baltazar Results: Laboratory Tests 09/03 09/03 0545 0545 Chemistry Sodium (137 - 145 mmol/L) 141 Potassium (3.5 - 5.1 mmol/L) 4.5 Chloride (98 - 107 mmol/L) 104 Carbon Dioxide (22 - 30 mmol/L) 30 Anion Gap (5 - 16) 7 BUN (7 - 17 mg/dL) 24 H Creatinine (0.5 - 1.0 mg/dL) 0.6 Estimated GFR (>60 ml/min) > 60 BUN/Creatinine Ratio (7 - 25 %) 40.0 H Iron (37 - 170 ug/dL) 55 TIBC (265 - 497 ug/dL) 194 L Ferritin (11.1 - 264 ng/mL) 330.0 H Ammonia (9 - 30 umol/L) < 9 L Troponin I (< 0.11 ng/ml) < 0.01 Vitamin B12 (239 - 931 pg/mL) 844 Folate (2.76 - 20.0 ng/mL) > 20.0 H Hematology CBC w Diff NO MAN DIFF REQ WBC (4.8 - 10.8 /CUMM) 3.3 L RBC (4.20 - 5.40 /CUMM) 2.89 L Hgb (12.0 - 16.0 G/DL) 8.4 L Hct (37 - 47 %) 25.5 L MCV (81.0 - 99.0 FL) 88.3 MCH (27.0 - 31.0 PG) 29.2 RDW (11.5 - 14.5 %) 16.1 H Plt Count (130 - 400 /CUMM) 248 MPV (7.4 - 10.4 FL) 6.7 L Gran % (42.2 - 75.2 %) 57.8 Lymphocytes % (20.5 - 51.1 %) 30.4 Monocytes % (1.7 - 9.3 %) 8.3 Eosinophils % (0 - 5 %) 2.7 Basophils % (0.0 - 2.0 %) 0.8 Absolute Granulocytes (1.4 - 6.5 /CUMM) 1.9 Absolute Lymphocytes (1.2 - 3.4 /CUMM) 1.0 L Absolute Monocytes (0.10 - 0.60 /CUMM) 0.3 Absolute Eosinophils (0.0 - 0.7 /CUMM) 0.1 Absolute Basophils (0.0 - 0.2 /CUMM) 0 PUBS MCHC (33.0 - 37.0 G/DL) 33.1 09/02 09/02 09/02 2240 2150 1730 Chemistry Lactic Acid Cancelled Troponin I (< 0.11 ng/ml) < 0.01 Urines Urinalysis MANY H Urine Color (YEL,AMB,STR) YEL Urine Clarity (CLEAR) HAZY H Urine pH (5.0 - 8.0) 6.0 Ur Specific [place] (1.001 - 1.035) <= 1.005 Urine Protein (NEG,<30 MG/DL) NEG Urine Ketones (NEG) NEG Urine Nitrite (NEG) NEG Urine Bilirubin (NEG) MOD H Urine Urobilinogen (0.1 - 1.0 EU/dl) 0.2 Ur Leukocyte Esterase (NEG) TRACE H Ur Microscopic SEDIMENT EXAMINED Urine RBC (0 - 5 /HPF) RARE Urine WBC (0 - 2 /HPF) 1-3 H Ur Epithelial Cells (NONE,FEW) MOD H Urine Bacteria (NEG/NONE) FEW H Hyaline Casts (0/LPF) RARE H Granular Casts (NONE /LPF) RARE H Urine Mucus (FEW,NONE) FEW Urine Hemoglobin (NEG) NEG Urine Glucose (N MG/DL) NEG 09/02 1447 Chemistry Sodium (137 - 145 mmol/L) 140 Potassium (3.5 - 5.1 mmol/L) 4.5 Chloride (98 - 107 mmol/L) 99 Carbon Dioxide (22 - 30 mmol/L) 30 Anion Gap (5 - 16) 10 BUN (7 - 17 mg/dL) 34 H Creatinine (0.5 - 1.0 mg/dL) 0.9 Estimated GFR (>60 ml/min) > 60 BUN/Creatinine Ratio (7 - 25 %) 37.8 H Glucose (65 - 99 mg/dL) 101 H Hemoglobin A1c (4.2 - 5.8 %) 5.3 Lactic Acid (0.7 - 2.1 mmol/L) 1.7 Calcium (8.4 - 10.2 mg/dL) 10.0 Total Bilirubin (0.2 - 1.3 mg/dL) 0.7 AST (14 - 36 U/L) 19 ALT (9 - 52 U/L) 31 Alkaline Phosphatase (<127 U/L) 100 Troponin I (< 0.11 ng/ml) < 0.01 Total Protein (6.3 - 8.2 g/dL) 7.4 Albumin (3.5 - 5.0 g/dL) 3.4 L Globulin (1.9 - 4.2 gm/dL) 4.0 Albumin/Globulin Ratio (1.1 - 2.2 %) 0.9 L TSH (0.270 - 4.200 uIU/mL) 3.060 Coagulation D-Dimer (70 - 232 ng/ml) 3880 H Hematology CBC w Diff NO MAN DIFF REQ WBC (4.8 - 10.8 /CUMM) 4.5 L RBC (4.20 - 5.40 /CUMM) 3.17 L Hgb (12.0 - 16.0 G/DL) 9.3 L Hct (37 - 47 %) 27.3 L MCV (81.0 - 99.0 FL) 86.3 MCH (27.0 - 31.0 PG) 29.3 RDW (11.5 - 14.5 %) 16.1 H Plt Count (130 - 400 /CUMM) 286 MPV (7.4 - 10.4 FL) 6.2 L Gran % (42.2 - 75.2 %) 69.5 Lymphocytes % (20.5 - 51.1 %) 20.3 L Monocytes % (1.7 - 9.3 %) 8.4 Eosinophils % (0 - 5 %) 1.6 Basophils % (0.0 - 2.0 %) 0.2 Absolute Granulocytes (1.4 - 6.5 /CUMM) 3.1 Absolute Lymphocytes (1.2 - 3.4 /CUMM) 0.9 L Absolute Monocytes (0.10 - 0.60 /CUMM) 0.4 Absolute Eosinophils (0.0 - 0.7 /CUMM) 0.1 Absolute Basophils (0.0 - 0.2 /CUMM) 0 PUBS MCHC (33.0 - 37.0 G/DL) 34.0 Diagnostic Data EKG Results EKG tracing is independently reviewed, and reveals normal sinus rhythm at 80 with nonspecific T-wave abnormality CXR Results No acute pulmonary disease Other Results CTA chest: 1. There is no CTA evidence of acute pulmonary embolism. 2. No suspicious lung nodules. 3. Nonspecific mildly enlarged left subpectoral lymph node. 4. Stable right adrenal enlargement. Given the long-term stability, likely representing benign etiology.. 5. Stable splenomegaly. Bilateral lower extremity Doppler study: Normal triplex scan without evidence of deep venous thrombosis involving the bilateral lower extremities. Assessment/Plan Assessment/Plan Assessment: The patient is a 56-year-old female with history of diabetes mellitus, mild dysplastic syndrome, prior history of high output heart failure secondary to anemia presenting with shortness of breath and hypoxia. She is noted to be significantly anemic. Workup is negative for pulmonary embolism and deep vein thrombosis. CT scan of the chest does not reveal evidence of congestive heart failure. Troponin is negative x 3. EKG does not reveal any ischemic changes. There is no evidence at this time to suggest a cardiac etiology for the shortness of breath. Recommendations: * Echocardiogram * Continue current cardiac medications. * Check proBNP Consult Acknowledgment - Thank you for your consult request.
[2016-09-03 23:00] VITALS: BP 124/82
--- NOTE | 2016-09-04 06:45 | PN- Hematology ---
Subjective Subjective: Remains dyspneic on exertion, no chest pain Review of Systems: 12 point review of systems otherwise unchanged Objective Vital Signs and I&Os Vital Signs Date Time Temp Pulse Resp B/P B/P Pulse O2 O2 Flow FiO2 Mean Ox Delivery Rate 09/04 0000 Room Air 09/03 2300 98.3 78 18 124/82 96 Room Air 09/03 2041 78 124/82 09/03 1846 Room Air 09/03 1531 Room Air 09/03 1530 99.6 82 18 120/68 95 Room Air 09/03 1512 Room Air 09/03 1012 68 122/82 09/03 1012 68 122/82 09/03 1011 68 122/82 09/03 0800 98.2 77 20 104/60 94 Room Air Intake & Output 09/04 0800 09/04 0000 09/03 1600 09/03 0800 09/03 0000 09/02 1600 Intake Total 253 899 1049 1375 Output Total 550 450 800 Balance -200 372 121 6216 Intake, IV 0 225 600 975 Intake, Oral 350 450 620 400 Number 0 0 Bowel Movements Output, Urine 550 450 800 Patient 247 lb Weight Gen.: in NAD ENT: Sclera anicteric Chest: Normal respiratory effort, decreased breath sounds Cor: RRR, no extra sounds Abdomen: Soft, bowel sounds present, no tenderness, no rebound Extremities: Without clubbing, cyanosis, or asymmetric edema Neurology: Alert and oriented 3, no gross deficit Skin: No rashes Current Medications: Current Medications Sig/Emile Start time Last Medication Dose Route Stop Time Status Admin Acetaminophen 650 MG Q4P PRN 09/02 2199 AC PO Acetaminophen/ 15 ML Q8P PRN 09/02 2145 AC 09/03 Hydrocodone Bitart PO 2041 Amlodipine Besylate 10 MG DAILY 09/03 1000 AC 09/03 PO 101 Divalproex Sodium 500 MG BID 09/02 220 AC 09/03 PO 2041 Heparin Sodium 5,000 UNIT Q8 09/02 2199 AC 09/03 (Porcine) SC 2040 Ibuprofen 400 MG TID 09/02 2199 AC 09/03 PO 172 Insulin Aspart 0 TIDAC 09/03 0800 AC SC Insulin Detemir 15 UNITS BID 09/03 2200 AC 09/03 SC 205 Insulin Detemir 20 UNITS BID 09/03 1000 DC 09/03 SC 101 Levetiracetam 500 MG 4 TIMES/DAY 09/02 220 AC 09/03 PO 2041 Losartan Potassium 50 MG DAILY 09/03 1000 AC 09/03 PO 1011 Metoprolol Succinate 50 MG BID 09/02 2200 AC 09/03 PO 204 Morphine Sulfate 15 MG BID 09/02 220 AC 09/03 PO 204 Multivitamins 1 TAB DAILY 09/03 1000 AC 09/03 Therapeutic PO 1012 Omeprazole 40 MG DAILY AC 09/03 0700 AC 09/03 PO 0611 Patient Medication 1 ED .STK-MED ONE 09/03 1404 DC Teaching ED 09/03 1405 Sodium Chloride 1,000 ML Q13H 09/02 2130 DC 09/03 IV 09/03 1029 0809 Results Last 24 Hours of Lab Results: Please see data, decreased hematocrit, decrease white count Assessment/Plan Assessment/Recommendations: 1. Cardiopulmonary status-await continued workup, again decreased hematocrit will not lead to decreased oxygen saturations Recommend-if echocardiogram unrevealing, consider pulmonary consultation 2. Anemia/leukopenia-will defer workup to resolution of cardiopulmonary issues, no immediate need for red cell transfusion Have discussed with patient and
--- NOTE | 2016-09-04 07:13 | PN- Housestaff ---
Subjective Follow-up For: 1. Shortness of breath 2. Atypical chest pain 3. Generalized weakness 4. History of seizure disorder Tele-Events Since Last Visit: Normal sinus rhythm between 70-79, no overnight events Subjective: The patient has a very flat affect and responds very slowly, her is at bedside and also his muscle to questions. However the patient reported she was uncomfortable at night and wasn't able to sleep much, her appetite was well. reports she still gets tired and he is worried she continued to be short of breath and tired when she gets discharged. Her orthostatics were negative Ambulatory saturations remained between 90-93% Denied chest pain, palpitations, nausea vomiting or diarrhea. Review of Systems Constitutional: Reports: see HPI. Cardiovascular: Reports: no symptoms. Respiratory: Reports: short of breath. Gastrointestinal: Reports: no symptoms. Genitourinary: Reports: no symptoms. Musculoskeletal: Reports: see HPI. Objective Last 24 Hrs of Vital Signs/I&O Vital Signs Date Time Temp Pulse Resp B/P B/P Pulse O2 O2 Flow FiO2 Mean Ox Delivery Rate 09/04 0915 Room Air 09/04 0806 98.1 79 18 152/88 95 Room Air 09/04 0000 Room Air 09/03 2300 98.3 78 18 124/82 96 Room Air 09/03 2041 78 124/82 09/03 1846 Room Air 09/03 1531 Room Air 09/03 1530 99.6 82 18 120/68 95 Room Air 09/03 1512 Room Air Intake & Output 09/04 1600 09/04 0800 09/04 0000 Intake Total 350 675 Output Total 550 450 Balance -200 225 Intake, IV 0 225 Intake, Oral 350 450 Number 0 0 Bowel Movements Output, Urine 550 450 Physical Exam General Appearance: Alert, Oriented X3, Cooperative, No Acute Distress, obese, flat affect Neck: Supple, No JVD Cardiovascular: Regular Rate, Normal S1, Normal S2, No Murmurs Lungs: Clear to Auscultation, Normal Air Movement Abdomen: Normal Bowel Sounds, Soft, No Tenderness, No Hepatospenomegaly Neurological: Normal Speech, Strength at 5/5 X4 Ext, Normal Tone, Sensation Intact Extremities: Normal Pulses, trace pedal edema Current Medications: Current Medications Sig/Emile Start time Last Medication Dose Route Stop Time Status Admin Acetaminophen 650 MG Q4P PRN 09/02 2200 AC PO Acetaminophen/ 15 ML Q8P PRN 09/02 2145 AC 09/03 Hydrocodone Bitart PO 204 Amlodipine Besylate 10 MG DAILY 09/03 1000 AC 09/03 PO 1012 Divalproex Sodium 500 MG BID 09/02 2200 AC 09/03 PO 204 Heparin Sodium 5,000 UNIT Q8 09/02 2200 AC 09/04 (Porcine) SC 0600 Ibuprofen 400 MG TID 09/02 2200 AC 09/03 PO 1723 Insulin Aspart 0 TIDAC 09/03 0800 AC SC Insulin Detemir 15 UNITS BID 09/03 2200 AC 09/03 SC 205 Levetiracetam 500 MG 4 TIMES/DAY 09/02 2200 AC 09/03 PO 204 Losartan Potassium 50 MG DAILY 09/03 1000 AC 09/03 PO 1011 Metoprolol Succinate 50 MG BID 09/02 2200 AC 09/03 PO 204 Morphine Sulfate 15 MG BID 09/02 2200 AC 09/03 PO 204 Multivitamins 1 TAB DAILY 09/03 1000 AC 09/03 Therapeutic PO 1012 Omeprazole 40 MG DAILY AC 09/03 0700 AC 09/04 PO 0600 Patient Medication 1 ED .STK-MED ONE 09/03 1404 DC Teaching ED 09/03 1405 Orders Fingersticks (last 24 hrs): [phone] Assessment/Plan Assessment: 56-year-old woman with past medical history myelodysplastic syndrome status post chemotherapy, follows Dr. Burger, history of seizure disorder, insulin-dependent diabetes mellitus, history of goiter, history of diastolic CHF, history of angina, history of hypertension, osteoarthritis, presents with dyspnea on minimal exertion, and hypoxia 81% on room air. Assessment and plan: 1. Shortness of breath/acute hypoxic respiratory failure: - The patient presented with shortness of breath, even on minimal exertion, and hypoxia to 81% on room air however currently she saturating at 94% on room air. Saturations have been 92-94% on room air but she desaturated to *%% while ambulating with PT again today. - The lungs are clear, there is no evidence of leukocytosis of pneumonia, clinically it does not seem to be in heart failure with no JVD, clear lungs on auscultation and trace pitting edema. She has also been evaluated by cardiology , normal proBNP, shortness of breath is less likely due to cardiac causes - Echocardiogram pending - Iron studies show anemia of chronic disease - Shortness of breath could be multifactorial including chronic anemia with an H &H of 8.4/25.5, and obesity hypoventilation syndrome - We'll transfuse 1 unit packed red blood cells and recheck CBC and evaluate clinical status after that - Will also get Pulm consultation - She will also require a sleep study and PFTs as an outpatient after she gets discharged - We'll continue with physical therapy; they recommended STR, unless home goals met. PT to reevaluate again today 2. Atypical chest pain: - The patient presented with chest pain but has remained chest pain-free since admission - 2 sets of troponins and EKGs have been negative - Pending echocardiogram 3. Generalized weakness: - The patient has increased weakness and decreased oral intake. - We'll encourage by mouth intake - Weakness may improve after transfusion 4. History of hypertension: - Patient presented with blood pressure as he was 80s but it came up to 120s nicely; in the morning 155/88 - Orthostats negative - Chlorthalidone has been held - We'll continue with metoprolol, amlodipine and valsartan. Will restart Imdur today as well 5. Insulin-dependent diabetes mellitus: -We'll continue with Levemir 15 units twice a day 6. History of seizures: - We'll continue with Keppra 500 mg 4 times a day 7. Diabetic diet 8. Subcutaneous heparin for DVT prophylaxis 9. FULL CODE Problem List: 1. Shortness of breath 2. Chronic pain 3. MDS (myelodysplastic syndrome) 4. Chronic anemia 5. Generalized weakness Pain Ratin Pain Location: No pain today Pain Goal: Remain pain free Pain Plan: When necessary Tylenol and by mouth Dilaudid Tomorrow's Labs & Rationales: cbc - monitor H&H DVT/Prophylaxis: pharmacological Consulting Request: 1 Consulting Specialty: Hematology/Oncology Consulting Physician: Dr. Burger Reason for Consult: MDS/shortness of breath Consulting Request: 2 Consulting Specialty: Cardiology Consulting Physician: Bean Mistry MD/Dr. Stubbs Reason for Consult: SOB
[2016-09-04 08:06] VITALS: BP 152/88
--- NOTE | 2016-09-04 09:54 | PN- Att Addend ---
Attending Addendum Attending Brief Note Patient complains of significant weakness with minimal ablation. General Appearance: Alert, No Acute Distress Skin: Grossly normal HEENT: PEERLA Neck: Supple, No JVD Cardiovascular: Regular Rate, Normal S1, Normal S2, No Murmurs Lungs: Clear to Auscultation, Normal Air Movement Abdomen: Normal Bowel Sounds, Soft, No Tenderness Neurological: Normal Speech, Strength at 5/5 X4 Ext, Cranial Nerves 3-12 NL, Reflexes 2+ Extremities: Trace pedal edema. Speeded edema Vascular: Normal Pulses Assessment Suspect hypoxic respiratory failure is multifactorial including obesity hypoventilation and chronic anemia. She will need sleep study and pulmonary function test which can be pursued as outpatient. However at this point she remains hypoxic and tired. We will transfuse her with 1 unit and reassess. In the meantime echo cardiac exam is pending. Repeat orthostatics was negative. Hemoglobin A1c 5.3, suspect diabetic is being aggressively treated with insulin. We'll drop her insulin doses. Plan Transfuse 1 unit PRBC Echocardiogram Decrease Levemir to 15 units once daily Ambulate with PT Sleep study and pulmonary function tests as outpatient Continue other home meds DVT prophylaxis Current Medications Sig/Emile Start time Last Medication Dose Route Stop Time Status Admin Acetaminophen 650 MG Q4P PRN 09/02 2199 AC PO Acetaminophen/ 15 ML Q8P PRN 09/02 214 AC 09/03 Hydrocodone Bitart PO 2041 Amlodipine Besylate 10 MG DAILY 09/03 1000 AC 09/03 PO 101 Divalproex Sodium 500 MG BID 09/02 2199 AC 09/03 PO 2041 Heparin Sodium 5,000 UNIT Q8 09/02 2199 AC 09/04 (Porcine) SC 0600 Ibuprofen 400 MG TID 09/02 2199 AC 09/03 PO 1723 Insulin Aspart 0 TIDAC 09/03 0800 AC SC Insulin Detemir 15 UNITS BID 09/03 2199 AC 09/03 SC 205 Insulin Detemir 20 UNITS BID 09/03 1000 DC 09/03 SC 101 Levetiracetam 500 MG 4 TIMES/DAY 09/02 2199 AC 09/03 PO 204 Losartan Potassium 50 MG DAILY 09/03 1000 AC 09/03 PO 1011 Metoprolol Succinate 50 MG BID 09/02 2199 AC 09/03 PO 204 Morphine Sulfate 15 MG BID 09/02 2199 AC 09/03 PO 2042 Multivitamins 1 TAB DAILY 09/03 1000 AC 09/03 Therapeutic PO 1012 Omeprazole 40 MG DAILY AC 09/03 0700 AC 09/04 PO 0600 Patient Medication 1 ED .STK-MED ONE 09/03 1404 DC Teaching ED 09/03 1405 Sodium Chloride 1,000 ML Q13H 09/02 2130 DC 09/03 IV 09/03 1029 0809 Vital Signs Date Time Temp Pulse Resp B/P B/P Pulse O2 O2 Flow FiO2 Mean Ox Delivery Rate 09/04 0915 Room Air 09/04 0806 98.1 79 18 152/88 95 Room Air 09/04 0000 Room Air 09/03 2300 98.3 78 18 124/82 96 Room Air 09/03 2041 78 124/82 09/03 1846 Room Air 09/03 1531 Room Air 09/03 1530 99.6 82 18 120/68 95 Room Air 09/03 1512 Room Air 09/03 1012 68 122/82 09/03 1012 68 122/82 09/03 1011 68 122/82
--- NOTE | 2016-09-04 10:15 | PN- Cardiology ---
GABRIEL SIMMS 09/04/16 1013: Subjective Subjective: No overnight events. She is still c/o shortness of breath when she walked few steps early this morning. She is resting comfortably on a chair without any breathing difficulty. Her oxygen saturation is 95% on room air. She denies any chest pain or discomfort but reports some lightheadedness when she stood up and walked. Review of Systems Constitutional: Reports: see HPI. Objective Vital Signs and I&Os Vital Signs Date Time Temp Pulse Resp B/P B/P Pulse O2 O2 Flow FiO2 Mean Ox Delivery Rate 09/04 1035 155/88 09/04 1035 155/88 09/04 1035 97.1 79 155/88 09/04 0915 Room Air 09/04 0806 98.1 79 18 152/88 95 Room Air 09/04 0000 Room Air 09/03 2300 98.3 78 18 124/82 96 Room Air 09/03 2041 78 124/82 09/03 1846 Room Air 09/03 1531 Room Air 09/03 1530 99.6 82 18 120/68 95 Room Air 09/03 1512 Room Air Intake & Output 09/04 1600 09/04 0800 09/04 0000 09/03 1600 09/03 0800 09/03 0000 Intake Total 534 466 4137 1375 Output Total 550 450 800 Balance -200 224 343 0150 Intake, IV 0 225 600 975 Intake, Oral 350 450 620 400 Number 0 0 Bowel Movements Output, Urine 550 450 800 Patient 247 lb Weight Physical Exam General Appearance: no apparent distress, alert, awake, anxious, obese Head: atraumatic Neck: supple Respiratory: normal breath sounds, chest non-tender, lungs clear Cardiovascular: regular rate/rhythm Abdomen: soft, non-tender Extremities: no edema Current Medications: Current Medications Sig/Emile Start time Last Medication Dose Route Stop Time Status Admin Acetaminophen 650 MG Q4P PRN 09/02 2199 AC PO Acetaminophen/ 15 ML Q8P PRN 09/02 2144 AC 09/03 Hydrocodone Bitart PO 2041 Amlodipine Besylate 10 MG DAILY 09/03 1000 AC 09/04 PO 1035 Divalproex Sodium 500 MG BID 09/02 2199 AC 09/04 PO 1034 Heparin Sodium 5,000 UNIT Q8 09/02 2199 AC 09/04 (Porcine) SC 0600 Ibuprofen 400 MG TID 09/02 2199 AC 09/04 PO 1035 Insulin Aspart 0 TIDAC 09/03 0800 AC SC Insulin Detemir 15 UNITS BID 09/03 2199 AC 09/04 SC 1034 Isosorbide 30 MG DAILY 09/04 1045 AC Mononitrate PO Levetiracetam 500 MG 4 TIMES/DAY 09/02 2199 AC 09/04 PO 1035 Losartan Potassium 50 MG DAILY 09/03 1000 AC 09/04 PO 1035 Metoprolol Succinate 50 MG BID 09/02 2199 AC 09/04 PO 1035 Morphine Sulfate 15 MG BID 09/02 2199 AC 09/04 PO 1034 Multivitamins 1 TAB DAILY 09/03 1000 AC 09/04 Therapeutic PO 1035 Omeprazole 40 MG DAILY AC 09/03 0700 AC 09/04 PO 0600 Patient Medication 1 ED .STK-MED ONE 09/03 1404 GA Teaching ED 09/03 1405 Results Last 48 Hrs of Labs/Mics: Laboratory Tests 09/03/16 0545: Troponin I < 0.01 09/03/16 0545: Anion Gap 7, Estimated GFR > 60, BUN/Creatinine Ratio 40.0 H, Iron 55, TIBC 194 L, Ferritin 330.0 H, Ammonia < 9 L, Nnb-N-Jyyohsgkcbv Pept 98.3, Vitamin B12 844, Folate > 20.0 H, CBC w Diff NO MAN DIFF REQ, RBC 2.89 L, MCV 88.3, MCH 29.2, RDW 16.1 H, MPV 6.7 L, Gran % 57.8, Lymphocytes % 30.4, Monocytes % 8.3, Eosinophils % 2.7, Basophils % 0.8, Absolute Granulocytes 1.9, Absolute Lymphocytes 1.0 L, Absolute Monocytes 0.3, Absolute Eosinophils 0.1, Absolute Basophils 0, PUBS MCHC 33.1 09/02/16 2240: Urinalysis MANY H, Urine Color YEL, Urine Clarity HAZY H, Urine pH 6.0, Ur Specific [place] <= 1.005, Urine Protein NEG, Urine Ketones NEG, Urine Nitrite NEG, Urine Bilirubin MOD H, Urine Urobilinogen 0.2, Ur Leukocyte Esterase TRACE H, Ur Microscopic SEDIMENT EXAMINED, Urine RBC RARE, Urine WBC 1-3 H, Ur Epithelial Cells MOD H, Urine Bacteria FEW H, Hyaline Casts RARE H, Granular Casts RARE H, Urine Mucus FEW, Urine Hemoglobin NEG, Urine Glucose NEG 09/02/16 2150: Troponin I < 0.01 09/02/16 1730: Lactic Acid Cancelled 09/02/16 1447: Anion Gap 10, Estimated GFR > 60, BUN/Creatinine Ratio 37.8 H, Glucose 101 H, Hemoglobin A1c 5.3, Lactic Acid 1.7, Calcium 10.0, Total Bilirubin 0.7, AST 19, ALT 31, Alkaline Phosphatase 100, Troponin I < 0.01, Total Protein 7.4, Albumin 3.4 L, Globulin 4.0, Albumin/Globulin Ratio 0.9 L, TSH 3.060, D-Dimer 3880 H, CBC w Diff NO MAN DIFF REQ, RBC 3.17 L, MCV 86.3, MCH 29.3, RDW 16.1 H, MPV 6.2 L, Gran % 69.5, Lymphocytes % 20.3 L, Monocytes % 8.4, Eosinophils % 1.6, Basophils % 0.2, Absolute Granulocytes 3.1, Absolute Lymphocytes 0.9 L, Absolute Monocytes 0.4, Absolute Eosinophils 0.1, Absolute Basophils 0, PUBS MCHC 34.0 Assessment/Plan Assessment/Plan She is 56-year-old woman with past medical history of diabetes mellitus, hypertension, myelodysplastic syndrome and 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 Problem list 1. Acute hypoxic respiratory failure with oxygen saturation 81% on room air. Now resolved. Ruled out for ACS and congestive heart failure. Respiratory failure could be because of obesity hypoventilation syndrome vs obstructive sleep apnea vs anemia 2. Normocytic anemia 3. Physical deconditioning and generalized weakness Patient might need outpatient sleep study and pulmonary workup. Follow-up echocardiogram. We can transfuse 1 unit of blood if okay with hematology. Patient might need short-term rehabilitation upon discharge. We'll continue same medications. Continue telemetry? No KATHERINE HOLLOWAY,ADRIANNE Ngo 09/04/16 6463: Assessment/Plan Assessment/Plan Attending addendum: Clinically stable. As noted above. At the present time I see no evidence of active cardiac issues. There is no evidence of CHF. Nevertheless, she apparently, per PT, continues to desaturate with ambulation. Reccomendation: - Recheck sats with ambulation after transfusion. - Pulmonary evaluation in view of chest CT findings. - Echo pending
--- NOTE | 2016-09-04 15:19 | Cons- Pulmonary ---
General Information and HPI Consulting Request Date of Consult: 09/04/16 Requested By: shadi Reason for Consult: Exercise desaturation History of Present Illness: Patient is a 56-year-old morbidly obese woman with history of myelodysplastic syndrome high-output congestive heart failure diabetes recent ankle fractures immobility seen for reported exercise desaturation. She was seen in the cancer center for follow-up and noted to desaturate with ambulation. Work up included a unremarkable chest x-ray and CTA for pulmonary embolism congestive heart failure or interstitial lung disease nor minor areas of atelectasis. She appeared to be somewhat more anemic and was transfused BNP was normal. Room air oxygen saturations are normal. Allergies/Medications Allergies: Coded Allergies: Penicillins (UNKNOWN 04/01/16) Home Med List: Acetaminophen (Mapap) 500 MG CAPSULE 1 CAP PO PRN PAIN (Reported) Amlodipine Besylate 5 MG TABLET 2 TAB PO DAILY HEART (Reported) Baclofen 10 MG TABLET 1 TAB PO DAILY PRN HEADACHE (Reported) Chlorthalidone 25 MG TABLET 0.5 TAB PO DAILY WATER RETENTION (Reported) Cyproheptadine HCl 4 MG TABLET 2 TAB PO BID PRN alleriges (Reported) Divalproex Sodium (Divalproex Sodium ER) 500 MG TAB.ER.24H 1 TAB PO BID SEIZURES (Reported) Esomeprazole (Nexium) 40 MG CAPSULE.DR 1 CAP PO DAILY GI (Reported) Etodolac 400 MG TABLET 1 TAB PO TID pain (Reported) Fexofenadine HCl (Deana Allergy) 60 MG TABLET 1 TAB PO DAILY PRN ALLERGIES (Reported) Furosemide (Lasix) 40 MG TABLET 1 TAB PO EOD LEG SWELLING (Reported) Hydrocodone/Acetaminophen (Hydrocodon-Acetaminoph 7.5-325) 7.5 MG-325 MG TABLET 1 TAB PO Q8P PRN PAIN (Reported) Insulin Detemir (Levemir Flextouch) 100 UNIT/ML (3 ML) INSULN.PEN 28 UNITS SC 0900 DM TYPE 2 (Reported) Insulin Detemir (Levemir Flextouch) 100 UNIT/ML (3 ML) INSULN.PEN 28 UNITS SC 2000 DM TYPE 2 (Reported) Isosorbide Mononitrate (Isosorbide Mononitrate ER) 30 MG TAB.ER.24H 1 TAB PO DAILY CHEST PAIN (Reported) Levetiracetam 500 MG TABLET 1 TAB PO 4 TIMES/DAY SEIZURES (Reported) Losartan Potassium 50 MG TABLET 1 TAB PO BID HTN (Reported) Metformin HCl (Metformin HCl ER) 500 MG TAB.ER.24H 1 TAB PO DAILY DM TYPE 2 ( Reported) Metoprolol Succinate 50 MG TAB.ER.24H 1 TAB PO BID HTN (Reported) Morphine Sulfate (Morphine Sulfate ER) 15 MG TABLET.ER 1 TAB PO TID PAIN ( Reported) Multivitamin (Daily Multiple Vitamin) 1 EACH TABLET 1 TAB PO DAILY SUPPLEMENT (Reported) Rutin/Hesp/Bioflav/C/Herb#196 (Bioflex Tablet) 40 MG-25 MG-50 MG-500 MG TABLET 1 TAB PO DAILY SUPPLEMENT (Reported) Sitagliptin Phosphate (Januvia) 100 MG TABLET 1 TAB PO DAILY DM TYPE 2 ( Reported) Review of Systems Review of Systems Constitutional: Reports: weakness. Denies: chills, fever. Cardiovascular: Denies: chest pain. Respiratory: Reports: short of breath. Denies: cough, sputum production, wheezing. GI: Denies: abdominal pain, diarrhea, melena. 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 Home Who Do You Live With? spouse Services at Home: None Primary Language: Dutch Smoking Status: Never Smoked ETOH Use: denies use Illicit Drug Use: denies illicit drug use Functional Ability ADLs Needs Assist: dressing, eating, toileting, bathing. Ambulation: Bedbound IADLs Independent: finances, telephone, medication admin. Needs Assist: shopping, housework, food prep, transportation. Exam & Diagnostic Data Last 24 Hrs of Vital Signs/I&O Vital Signs Date Time Temp Pulse Resp B/P B/P Pulse O2 O2 Flow FiO2 Mean Ox Delivery Rate 09/04 1350 98.8 84 20 122/68 09/04 1035 155/88 09/04 1035 155/88 09/04 1035 97.1 79 155/88 09/04 0915 Room Air 09/04 0806 98.1 79 18 152/88 95 Room Air 09/04 0000 Room Air 09/03 2300 98.3 78 18 124/82 96 Room Air 09/03 2041 78 124/82 09/03 1846 Room Air 09/03 1531 Room Air 09/03 1530 99.6 82 18 120/68 95 Room Air Intake & Output 09/04 1600 09/04 0800 09/04 0000 Intake Total 350 675 Output Total 550 450 Balance -200 225 Intake, IV 0 225 Intake, Oral 350 450 Number 0 0 Bowel Movements Output, Urine 550 450 Patient 247 lb Weight Respiratory oxygen saturation 9596% HEENT exam shows no adenopathy or stridor exam for chest shows diminished breath sounds at the bases there are no wheezes or crackles cardiac exam shows soft S1 and S2 without murmurs abdomen a soft nontender she has trace lower extremity edema which is symmetrical Last 48 Hrs of Labs/Baltazar: Laboratory Tests 09/03/16 0545: Troponin I < 0.01 09/03/16 0545: Anion Gap 7, Estimated GFR > 60, BUN/Creatinine Ratio 40.0 H, Iron 55, TIBC 194 L, Ferritin 330.0 H, Ammonia < 9 L, Nlr-H-Jdlynxjyfau Pept 98.3, Vitamin B12 844, Folate > 20.0 H, CBC w Diff NO MAN DIFF REQ, RBC 2.89 L, MCV 88.3, MCH 29.2, RDW 16.1 H, MPV 6.7 L, Gran % 57.8, Lymphocytes % 30.4, Monocytes % 8.3, Eosinophils % 2.7, Basophils % 0.8, Absolute Granulocytes 1.9, Absolute Lymphocytes 1.0 L, Absolute Monocytes 0.3, Absolute Eosinophils 0.1, Absolute Basophils 0, PUBS MCHC 33.1 09/02/16 2240: Urinalysis MANY H, Urine Color YEL, Urine Clarity HAZY H, Urine pH 6.0, Ur Specific [place] <= 1.005, Urine Protein NEG, Urine Ketones NEG, Urine Nitrite NEG, Urine Bilirubin MOD H, Urine Urobilinogen 0.2, Ur Leukocyte Esterase TRACE H, Ur Microscopic SEDIMENT EXAMINED, Urine RBC RARE, Urine WBC 1-3 H, Ur Epithelial Cells MOD H, Urine Bacteria FEW H, Hyaline Casts RARE H, Granular Casts RARE H, Urine Mucus FEW, Urine Hemoglobin NEG, Urine Glucose NEG 09/02/16 2150: Troponin I < 0.01 09/02/16 1730: Lactic Acid Cancelled Assessment/Plan Impression/Plan: 56-year-old morbidly obese woman with myelodysplastic syndrome she of high output congestive heart failure diabetes has been noted to have exercise-induced desaturation. The etiology of this this point is unclear. Repeat cardiac ultrasound is pending. He is a high suspicion that she has sleep apnea. Acute etiology such as thromboembolism congestive heart failure or interstitial lung disease have been excluded. Recommendations: Outpatient pulmonary function testing with exercise oximetry. Outpatient sleep study. Would obtain arterial blood gases to exclude resting hypercarbia as her bicarbonate has been elevated in the past. Supplemental oxygen with exertion can be utilized pending the above evaluation. Follow-up results of cardiac ultrasound Consult Acknowledgment - Thank you for your consult request.
[2016-09-04 15:30] VITALS: BP 138/80
--- NOTE | 2016-09-04 15:48 | Patient Discharge Instructions ---
Discharge Instructions General Discharge Information You were seen/treated for: 1. Shortness of breath 2. Chronic Anemia 3. Generalized weakness You had these procedures: ECHO Blood transfusion Special Instructions: 1. Please follow up with your PCP after discharge 2. Please follow up with dr. Mistry after discharge 3. Please follow up with dr. Rosales after discharge 4. Please follow up with Dr. Baez for MDS and chemo after discharge 5. Please continue with physical therapy 6. Please follow up with Dr. Landon and Dr. Montano for an out patient sleep study and PFTs with exercise oximetry 7. In case of shortness of breath, chest pain, palpitations or worsening weakness, come to the ED 8. Follow up closely with Dr. Lucero for your blood sugars as well 9. Supplemental oxygen with exertion can be utilized on ambulation if needed Diet Continue normal diet: Yes Activity Additional ACTIVITY Info: Will require PT and assistance Acute Coronary Syndrome Inclusion Criteria At DC or during hospital stay patient has or had the following: ACS DIAGNOSIS No Discharge Core Measures Meds if any: Prescribed or Continued at Discharge Meds if any: NOT Prescribed or Continued at Discharge Congestive Heart Failure Inclusion Criteria At DC or during hospital stay patient has or had the following: CHF DIAGNOSIS No Discharge Core Measures Meds if any: Prescribed or Continued at Discharge Meds if any: NOT Prescribed or Continued at Discharge Cerebrovascular accident Inclusion Criteria At DC or during hospital stay patient has or had the following: CVA/TIA Diagnosis No Discharge Core Measures Meds if any: Prescribed or Continued at Discharge Meds if any: NOT Prescribed or Continued at Discharge Venous thromboembolism Inclusion Criteria VTE Diagnosis No VTE Type NONE VTE Confirmed by (Test) NONE Discharge Core Measures - Per Current guidelines, there needs to be overlap - treatment for the first 5 days of Warfarin therapy. - If discharged on Warfarin prior to 5 days of - overlap therapy, the patient will need to be - assessed for post discharge needs including - *Post discharge parental anticoagulation - *Warfarin and/or parental anticoagulation education - *Follow up date to check INR post discharge At least 5 days overlap therapy as Inpatient No Meds if any: Prescribed or Continued at Discharge Note: Overlap Therapy is Warfarin and Anticoagulant Meds if any: NOT Prescribed or Continued at Discharge
[2016-09-04] MEDS ORDERED: LEVEMIR100 UNIT/1 SC (15:51)
--- NOTE | 2016-09-04 15:55 | Discharge Summary ---
Visit Information Visit Dates Admission Date: 09/02/16 Discharge Date: 09/05/16 Hospital Course Course Attending Physician: TYLER EVANS MD Primary Care Physician: TYLER EVANS MD Consulting Request: 1 Consulting Specialty: Cardiology Consulting Physician: Bean Murphy MD/Dr. Stubbs Reason for Consult: SOB Consulting Request: 2 Consulting Specialty: Pulmonary Disease Consulting Physician: Dr. Montano Reason for Consult: SOB Consulting Request: 3 Consulting Specialty: Hematology/Oncology Consulting Physician: DR. Carmen Reason for Consult: SOB/Anemia Hospital Course: 56-year-old female with a past medical history of myelodysplastic syndrome follows up with Dr. Carmen, diffuse nonspecific ST-T wave changes,seizures diabetes mellitus, goiter, diastolic CHF, angina, hypertension, osteoarthritis, osteoporosis, was sent in by Dr. Carmen after she was found to be hypoxic to 81% on room air. She also reported feeling very tired, and feels wiped out even if she has to move from bed to chair. Has a flat affect, decreased PO intake and letharg. Of note patient was recently started on pain medications including morphine sulfate 50 mg 3 times a day as well as hydrocodone about a month ago by Dr. Sarkar. Since then she has been feeling a little foggy. In the ER patient was found to be positive for orthostatic hypotension and very dry on exam together with nonspecific ST-T changes on her EKG is. Vitals at the time of admission blood pressure 123/82, pulse 91, afebrile, respiratory rate 22 saturating 96% on room air. On physical exam she was alert and oriented 3, in no acute distress lying comfortably in bed. HEENT revealed PERRLA, very dry mucous membranes. Examination of the neck did not reveal any JVD or cervical lymphadenopathy. CVS exam was normal with S1, S2, no murmurs rubs or gallops appreciated. Chest was clear to auscultation bilaterally with decreased breath sounds bilaterally, and portcath noted on right anterior chest with a clean site, no redness or tenderness. Abdominal exam was pertinent for splenomegaly, abdomen soft, nontender normal bowel sounds. Examination of extremities revealed left lower extremity much more swollen compared to the right liver tenderness per se. Problem List: 1. Shortness of breath/acute hypoxic respiratory failure: The patient has a history of diastolic CHF with preserved EF, presented with shortness of breath, even on minimal exertion, and hypoxia to 81% on room air at Dr. Carmen's office, remained between 92-93% on RA but desaturated to 85% while ambulating with physical therapy during her hospital stay. She did not require oxygen though. She had a normal CXR and CT scan, lungs were clear on ausculation , afebrile, no leukocytosis, had trace bilateral pedal edema, at baseline, no JVD, normal ProBNP. ABGs normal. Was evaluated in the hospital by cardiology and pulmonology. PE was ruled out by CTA. ECHO showed preserved EF. Iron studies showed anemia of chronic disease. The etilogy of her shortness of breath is unclear but could be multifactorial including chronic anemia with an H&H of 8.4/ 25.5, (baseline in 9s) and obesity hypoventilation syndrome. She was transfused 1 unit of packed red blood cells and was recommended to follow up with PCP and pulmonology for an out patient sleep study, PFTs and exercise oximetry. 2. Atypical chest pain: The patient presented with chest pain but remained chest pain-free since admission. ACS was ruled out by negative trops and EKG. Was also evaluated by cardiology. 3. Generalized weakness: The patient presented with increased weakness and decreased oral intake. She was orthostatic positive on admission that could be adding to her weakness. She was given fluids after which her orthostatics were negative. She was encouraged to take PO. An additional etilogy could have been worsening chronic anemia. She was transfused 1 units PRBCs. Physical therapy evaluated her and recommended STR. 4. History of hypertension: Patient presented with low blood pressure, with one time reading of 81/56, and positive orthostatics. BUt was given fluids with her orthostatics resolving. Initially her BP meds were held but after stabilization her CLIFTON remained in 150s, when her antihypertensives including metoprolol, amlodipine, valsartan, Imdur and chlorthiadone were reintroduced one by one, with her blood pressure adequately controlled between 120-130/60-80. 5. Insulin-dependent diabetes mellitus: The patient takes Insulin Levemir 28 units BID at home, which was recently decreased to 28 in am and 20 in pm by her PCP Dr. Evans. Likely due to low appetite, her blood sugars were in 80s initially upon admission and Levemir was decreased to 15 units BID with adequate control of her blood sugars. 6. History of seizures: She was continued with Keppra 500 mg 4 times a day, which is her home dose 7. Chronic pain: The patient was continued on morphine sulfate 50 mg 3 times a day as well as hydrocodone, whicha re her outpatient medications prescribed by pain clinic. 8. She was maintained on a diabetic diet 9. Subcutaneous heparin was given for DVT prophylaxis 10. She remained FULL CODE Complications: None Allergies: Coded Allergies: Penicillins (UNKNOWN 04/01/16) Significant Procedures: ECHO Blood transfusion Pertinent Lab Results: Laboratory Tests 09/04/16 1620: pH 7.43, pCO2 40, pO2 80, HCO3 26, ABG O2 Sat (Measured) 95.0 L, Carboxyhemoglobin 1.4 L, O2 Concentration % RA, O2 Delivery Method RA, Phlebotomy Draw Site RIGHT RADIAL 09/03/16 0545: Troponin I < 0.01 09/03/16 0545: Anion Gap 7, Estimated GFR > 60, BUN/Creatinine Ratio 40.0 H, Iron 55, TIBC 194 L, Ferritin 330.0 H, Ammonia < 9 L, Wda-N-Nzpgztetbxf Pept 98.3, Vitamin B12 844, Folate > 20.0 H, CBC w Diff NO MAN DIFF REQ, RBC 2.89 L, MCV 88.3, MCH 29.2, RDW 16.1 H, MPV 6.7 L, Gran % 57.8, Lymphocytes % 30.4, Monocytes % 8.3, Eosinophils % 2.7, Basophils % 0.8, Absolute Granulocytes 1.9, Absolute Lymphocytes 1.0 L, Absolute Monocytes 0.3, Absolute Eosinophils 0.1, Absolute Basophils 0, PUBS MCHC 33.1 09/02/16 2240: Urinalysis MANY H, Urine Color YEL, Urine Clarity HAZY H, Urine pH 6.0, Ur Specific [place] <= 1.005, Urine Protein NEG, Urine Ketones NEG, Urine Nitrite NEG, Urine Bilirubin MOD H, Urine Urobilinogen 0.2, Ur Leukocyte Esterase TRACE H, Ur Microscopic SEDIMENT EXAMINED, Urine RBC RARE, Urine WBC 1-3 H, Ur Epithelial Cells MOD H, Urine Bacteria FEW H, Hyaline Casts RARE H, Granular Casts RARE H, Urine Mucus FEW, Urine Hemoglobin NEG, Urine Glucose NEG 09/02/16 2150: Troponin I < 0.01 09/02/16 1730: Lactic Acid Cancelled 09/02/16 1447: Anion Gap 10, Estimated GFR > 60, BUN/Creatinine Ratio 37.8 H, Glucose 101 H, Hemoglobin A1c 5.3, Lactic Acid 1.7, Calcium 10.0, Total Bilirubin 0.7, AST 19, ALT 31, Alkaline Phosphatase 100, Troponin I < 0.01, Total Protein 7.4, Albumin 3.4 L, Globulin 4.0, Albumin/Globulin Ratio 0.9 L, TSH 3.060, D-Dimer 3880 H, CBC w Diff NO MAN DIFF REQ, RBC 3.17 L, MCV 86.3, MCH 29.3, RDW 16.1 H, MPV 6.2 L, Gran % 69.5, Lymphocytes % 20.3 L, Monocytes % 8.4, Eosinophils % 1.6, Basophils % 0.2, Absolute Granulocytes 3.1, Absolute Lymphocytes 0.9 L, Absolute Monocytes 0.4, Absolute Eosinophils 0.1, Absolute Basophils 0, PUBS MCHC 34.0 Microbiology 09/02 2121 LOWER RESP: Respiratory Culture - CAN Cancelled: SPECIMEN NOT RECEIVED IN LABORATORY 09/02 2121 LOWER RESP: Gram Stain - CAN Cancelled: SPECIMEN NOT RECEIVED IN LABORATORY 09/02 1455 BLOOD: Blood Culture - RES GRAM POSITIVE COCCI 09/02 144 BLOOD: Blood Culture - RES 09/02 1430 BLOOD: Blood Culture - CAN Cancelled: Cancelled via OE: NEED NEW ORDER Disposition Summary Disposition Principal Diagnosis: 1. Acute hypoxic respiratory failure 2/2 possible obesity hypoventilation syndrome and chronic anemia 2. Atypical chest pain 3. Generalized Weakness 4. Orthostatic hypotension on admission Additional Diagnosis: Obesity Hypertension IDDM Seizure disorder Discharge Disposition: SNF ([facility]) Discharge Instructions General Discharge Information Code Status: Full Code Patient's Diet: Diabetic Patient's Activity: As Tolerated but will require assistance and PT Follow-Up Instructions/Appts: 1. Please follow up with your PCP after discharge 2. Please follow up with dr. Murphy after discharge 3. Please follow up with dr. Michel after discharge 4. Please follow up with Dr. Carmen for MDS and chemo after discharge 5. Please continue with physical therapy 6. Please follow up with Dr. Landon and Dr. Montano for an out patient sleep study and PFTs with exercise oximetry 7. In case of shortness of breath, chest pain, palpitations or worsening weakness, come to the ED 8. Follow up closely with Dr. Evans for your blood sugars as well 9. Supplemental oxygen with exertion can be utilized on ambulation if needed Medications at Discharge Discharge Medications: Stop taking the following medications: Insulin Detemir (Levemir Flextouch) 100 UNIT/ML (3 ML) INSULN.PEN Inject into fatty tissue 0900 Qty = 30 Insulin Detemir (Levemir Flextouch) 100 UNIT/ML (3 ML) INSULN.PEN Inject into fatty tissue 2000 Qty = 30 Furosemide (Lasix) 40 MG TABLET ORAL Every other day Qty = 30 Morphine Sulfate (Morphine Sulfate ER) 15 MG TABLET.ER ORAL THREE TIMES DAILY Qty = 90 Continue taking these medications: Etodolac (Etodolac) 400 MG TABLET 1 Tablet ORAL THREE TIMES DAILY Qty = 90 Comments: NOT GIVEN IN HOSPITAL Sitagliptin Phosphate (Januvia) 100 MG TABLET 1 Tablet ORAL DAILY Qty = 30 Comments: NOT GIVEN IN HOSPITAL Levetiracetam (Levetiracetam) 500 MG TABLET 1 Tablet ORAL 4 TIMES A DAY Qty = 270 Comments: Last Taken: 04/04/16 Time: 9AM Metformin HCl (Metformin HCl ER) 500 MG TAB.ER.24H 1 Tablet ORAL DAILY Qty = 90 Comments: NOT GIVEN IN HOSPITAL Divalproex Sodium (Divalproex Sodium ER) 500 MG TAB.ER.24H 1 Tablet ORAL TWICE DAILY Qty = 90 Comments: PER PT Last Taken: 04/04/16 Time: 9AM Isosorbide Mononitrate (Isosorbide Mononitrate ER) 30 MG TAB.ER.24H 1 Tablet ORAL DAILY Qty = 90 Comments: Last Taken: 04/04/16 Time: 9AM Losartan Potassium (Losartan Potassium) 50 MG TABLET 1 Tablet ORAL TWICE DAILY Qty = 90 Comments: PER PT DOSE INCREASE BY MD EVANS FROM 50MG DAILY Baclofen (Baclofen) 10 MG TABLET 1 Tablet ORAL DAILY as needed for HEADACHE Qty = 30 Comments: NOT GIVEN IN HOSPITAL Cyproheptadine HCl (Cyproheptadine HCl) 4 MG TABLET 2 Tablet ORAL TWICE DAILY as needed for alleriges Qty = 270 Comments: NOT GIVEN IN HOSPITAL Metoprolol Succinate (Metoprolol Succinate) 50 MG TAB.ER.24H 1 Tablet ORAL TWICE DAILY Comments: PER PT MD EVANS DOSE INCREASED FROM 50MG DAILY Acetaminophen (Mapap) 500 MG CAPSULE 1 Capsule ORAL EVERY SIX HOURS as needed for PAIN Comments: PER PT Amlodipine Besylate (Amlodipine Besylate) 5 MG TABLET 2 Tablet ORAL DAILY Qty = 30 Multivitamin (Daily Multiple Vitamin) 1 EACH TABLET 1 Tablet ORAL DAILY Esomeprazole (Nexium) 40 MG CAPSULE.DR 1 Capsule ORAL DAILY Rutin/Hesp/Bioflav/C/Herb#196 (Bioflex Tablet) 40 MG-25 MG-50 MG-500 MG TABLET 1 Tablet ORAL DAILY Fexofenadine HCl (Deana Allergy) 60 MG TABLET 1 Tablet ORAL DAILY as needed for ALLERGIES Chlorthalidone (Chlorthalidone) 25 MG TABLET 0.5 Tablet ORAL DAILY Qty = 45 Hydrocodone/Acetaminophen (Hydrocodon-Acetaminoph 7.5-325) 7.5 MG-325 MG TABLET 1 Tablet ORAL EVERY 8 HOURS NEEDED as needed for PAIN Qty = 120 Start taking the following new medications: Insulin Detemir (Levemir) 100 UNIT/ML VIAL 15 Units Inject into fatty tissue DAILY Days = 30 No Refills Morphine Sulfate (Morphine Sulfate ER) 15 MG TABLET.ER 1 Tablet ORAL 2 x Daily as needed Qty = 10 No Refills Copies To: TYLER EVANS MD; ANDREW MICHEL MD; JERSEY CARMEN MD; Hailey MURPHY MD; MONSERRAT LANDON MD Copies To: TYLER EVANS MD; ANDREW MICHEL MD; JERSEY CARMEN MD; Hailey MURPHY MD; MONSERRAT LADNON MD
[2016-09-04] MEDS ORDERED: NOVOLOG100 UNIT/2 SC (16:07)
[2016-09-04 20:07] LABS: ABSOLUTE BASOPHIL COUNT 0 /CUMM (0.0-0.2); ABSOLUTE EOSINOPHIL COUNT 0.1 /CUMM (0.0-0.7); ABSOLUTE GRANULOCYTE CT 2.4 /CUMM (1.4-6.5); ABSOLUTE MONOCYTE COUNT 0.3 /CUMM (0.10-0.60); BASOPHIL % 0.8 % (0.0-2.0); EOSINOPHIL % 2.5 % (0-5); GRANULOCYTE % 62.3 % (42.2-75.2); HEMATOCRIT 29.8 % (37-47); MEAN CORPUSCULAR HGB 29.1 PG (27.0-31.0); MEAN CORPUSCULAR HGB CONC 32.9 G/DL (33.0-37.0); MEAN CORPUSCULAR VOLUME 88.3 FL (81.0-99.0); MEAN PLATELET VOLUME 6.9 FL (7.4-10.4); PLATELET COUNT 249 /CUMM (130-400); RBC DISTRIBUTION WIDTH 15.6 % (11.5-14.5); RED BLOOD CELL CT 3.38 /CUMM (4.20-5.40); WHITE BLOOD CELL COUNT 3.9 /CUMM (4.8-10.8)
[2016-09-04 23:41] VITALS: BP 178/74
[2016-09-05 03:23] VITALS: BP 164/70
[2016-09-05 06:23] VITALS: BP 154/74
--- NOTE | 2016-09-05 07:40 | PN- Pulmonary ---
Subjective HPI/Critical Care Issues: Patient is comfortable on room air blood cultures reveal coag-negative staph arterial blood gases show borderline high PCO2 40 Objective Current Medications: Current Medications Sig/Emile Start time Last Medication Dose Route Stop Time Status Admin Acetaminophen 650 MG Q4P PRN 09/02 2200 AC PO Acetaminophen/ 15 ML Q8P PRN 09/02 2145 AC 09/03 Hydrocodone Bitart PO 2042 Amlodipine Besylate 10 MG DAILY 09/03 1000 AC 09/04 PO 1035 Chlorthalidone 12.5 MG DAILY 09/05 1000 AC PO Chlorthalidone 12.5 MG DAILY 09/04 1557 CAN PO Divalproex Sodium 500 MG BID 09/02 220 AC 09/04 PO 2205 Heparin Sodium 5,000 UNIT Q8 09/02 2199 AC 09/05 (Porcine) SC 0612 Ibuprofen 400 MG TID 09/02 2200 AC 09/04 PO 2205 Insulin Aspart 0 TIDAC 09/03 0800 AC 09/04 SC 1351 Insulin Detemir 15 UNITS BID 09/03 2200 AC 09/04 SC 2205 Isosorbide 30 MG DAILY 09/04 1045 AC 09/04 Mononitrate PO 1350 Levetiracetam 500 MG 4 TIMES/DAY 09/02 2200 AC 09/04 PO 2205 Losartan Potassium 50 MG DAILY 09/03 1000 AC 09/04 PO 1035 Metoprolol Succinate 50 MG BID 09/02 2200 AC 09/04 PO 2205 Morphine Sulfate 15 MG BID 09/02 2200 AC 09/04 PO 2205 Multivitamins 1 TAB DAILY 09/03 1000 AC 09/04 Therapeutic PO 1035 Omeprazole 40 MG DAILY AC 09/03 0700 AC 09/05 PO 0612 Vital Signs & I&O Last 24 Hrs of Vitals and I&O: Vital Signs Date Time Temp Pulse Resp B/P B/P Pulse O2 O2 Flow FiO2 Mean Ox Delivery Rate 09/05 0623 75 154/74 09/05 0323 164/70 09/05 0000 Room Air 09/04 2341 98.6 85 18 178/74 95 Room Air 09/04 2205 78 140/68 09/04 1600 Room Air 09/04 1530 98.6 80 18 138/80 95 Room Air 09/04 1350 98.8 84 20 122/68 09/04 1035 155/88 09/04 1035 155/88 09/04 1035 97.1 79 155/88 09/04 0915 Room Air 09/04 0806 98.1 79 18 152/88 95 Room Air Intake & Output 09/05 0800 09/05 0000 09/04 1600 Intake Total 970 99 Output Total 200 2 Balance -200 968 99 Intake, Blood 350 3 Product Intake, IV 20 Intake, Oral 600 96 Output, Other 2 Output, Urine 200 Patient 247 lb Weight Room air oxygen sat 95% exam for chest diminished breath sounds at the bases cardiac exam regular S1 and S2 without murmurs Impression/Plan Impression/Plan Impression/Plan: 56-year-old morbidly obese woman with myelodysplastic syndrome she of high output congestive heart failure diabetes has been noted to have exercise-induced desaturation. The etiology of this this point is unclear. Repeat cardiac ultrasound is pending. He is a high suspicion that she has sleep apnea. Acute etiology such as thromboembolism congestive heart failure or interstitial lung disease have been excluded. Recommendations: Outpatient pulmonary function testing with exercise oximetry. Outpatient sleep study. Supplemental oxygen with exertion can be utilized pending the above evaluation. Follow-up results of cardiac ultrasound. Outpatient study should be scheduled probable patient is in short-term rehabilitation
[2016-09-05 07:50] VITALS: BP 136/60
--- NOTE | 2016-09-05 08:05 | PN- Housestaff ---
Subjective Follow-up For: 1. Shortness of breath 2. Atypical chest pain 3. Generalized weakness 4. History of seizure disorder 5. Chronic Anemia Tele-Events Since Last Visit: NSR, 74-84, no events Subjective: The patient stated she feels relatively better after blood transfusion and was able to move to the bed side commode on her own and without getting tired or short of breath. Denies chest pain, palpitations, fever, N/V/D. Review of Systems Constitutional: Reports: see HPI. Cardiovascular: Reports: no symptoms. Respiratory: Reports: no symptoms. Gastrointestinal: Reports: no symptoms. Genitourinary: Reports: no symptoms. Musculoskeletal: Reports: see HPI. Objective Last 24 Hrs of Vital Signs/I&O Vital Signs Date Time Temp Pulse Resp B/P B/P Pulse O2 O2 Flow FiO2 Mean Ox Delivery Rate 09/05 0750 97.7 83 20 136/60 97 Room Air 09/05 0623 75 154/74 09/05 0323 164/70 09/05 0000 Room Air 09/04 2341 98.6 85 18 178/74 95 Room Air 09/04 2205 78 140/68 09/04 1600 Room Air 09/04 1530 98.6 80 18 138/80 95 Room Air 09/04 1350 98.8 84 20 122/68 09/04 1035 155/88 09/04 1035 155/88 09/04 1035 97.1 79 155/88 Intake & Output 09/05 1600 09/05 0800 09/05 0000 Intake Total 970 Output Total 200 2 Balance -200 968 Intake, Blood 350 Product Intake, IV 20 Intake, Oral 600 Output, Other 2 Output, Urine 200 Physical Exam General Appearance: Alert, Oriented X3, Cooperative, No Acute Distress, flat affect Neck: No JVD Lymphatic: Cervical nl Cardiovascular: Regular Rate, Normal S1, Normal S2, No Murmurs Lungs: Clear to Auscultation, Normal Air Movement Abdomen: Normal Bowel Sounds, Soft, No Tenderness, No Hepatospenomegaly Neurological: Normal Speech, Strength at 5/5 X4 Ext, Normal Tone, Sensation Intact Extremities: Normal Pulses, trace ankle edema Current Medications: Current Medications Sig/Emile Start time Last Medication Dose Route Stop Time Status Admin Acetaminophen 650 MG Q4P PRN 09/020 AC PO Acetaminophen/ 15 ML Q8P PRN 09/02 2145 AC 09/03 Hydrocodone Bitart PO 2041 Amlodipine Besylate 10 MG DAILY 09/03 1000 AC 09/04 PO 1035 Chlorthalidone 12.5 MG DAILY 09/05 1000 AC PO Chlorthalidone 12.5 MG DAILY 09/04 1557 CAN PO Divalproex Sodium 500 MG BID 09/02 2199 AC 09/04 PO 220 Heparin Sodium 5,000 UNIT Q8 09/02 2199 AC 09/05 (Porcine) SC 0612 Ibuprofen 400 MG TID 09/02 2199 AC 09/04 PO 220 Insulin Aspart 0 TIDAC 09/03 0800 AC 09/05 SC 0802 Insulin Detemir 15 UNITS DAILY 09/05 1000 UNVr SC Insulin Detemir 15 UNITS BID 09/03 2200 DC 09/04 SC 2205 Isosorbide 30 MG DAILY 09/04 1045 AC 09/04 Mononitrate PO 1350 Levetiracetam 500 MG 4 TIMES/DAY 09/02 2199 AC 09/04 PO 2205 Losartan Potassium 50 MG DAILY 09/03 1000 AC 09/04 PO 1035 Metoprolol Succinate 50 MG BID 09/02 220 AC 09/04 PO 2205 Morphine Sulfate 15 MG BID 09/02 220 AC 09/04 PO 2205 Multivitamins 1 TAB DAILY 09/03 1000 AC 09/04 Therapeutic PO 1035 Omeprazole 40 MG DAILY AC 09/03 0700 AC 09/05 PO 0612 Last 24 Hrs of Lab/Baltazar Results Last 24 Hrs of Labs/Mics: Laboratory Tests 09/04/16 1830: CBC w Diff NO MAN DIFF REQ, RBC 3.38 L, MCV 88.3, MCH 29.1, RDW 15.6 H, MPV 6.9 L, Gran % 62.3, Lymphocytes % 26.0, Monocytes % 8.4, Eosinophils % 2.5, Basophils % 0.8, Absolute Granulocytes 2.4, Absolute Lymphocytes 1.0 L, Absolute Monocytes 0.3, Absolute Eosinophils 0.1, Absolute Basophils 0, PUBS MCHC 32.9 L 09/04/16 1620: pH 7.43, pCO2 40, pO2 80, HCO3 26, ABG O2 Sat (Measured) 95.0 L, Carboxyhemoglobin 1.4 L, O2 Concentration % RA, O2 Delivery Method RA, Phlebotomy Draw Site RIGHT RADIAL Assessment/Plan Assessment: 56-year-old woman with past medical history myelodysplastic syndrome status post chemotherapy, follows Dr. Burger, history of seizure disorder, insulin-dependent diabetes mellitus, history of goiter, history of diastolic CHF, history of angina, history of hypertension, osteoarthritis, presents with dyspnea on minimal exertion, and hypoxia 81% on room air. Assessment and plan: 1. Shortness of breath/acute hypoxic respiratory failure: - The patient presented with shortness of breath, even on minimal exertion, and hypoxia to 81% on room air however currently she saturating at 94% on room air. Saturations have been 92-94% on room air but she desaturated to *%% while ambulating with PT again today. - The lungs are clear, there is no evidence of leukocytosis of pneumonia, clinically it does not seem to be in heart failure with no JVD, clear lungs on auscultation and trace pitting edema. She has also been evaluated by cardiology , normal proBNP, shortness of breath is less likely due to cardiac causes - Echocardiogram pending - Will reduce pain meds taht were started by pain doctor as an out patient - Iron studies show anemia of chronic disease - Shortness of breath could be multifactorial including chronic anemia with an H &H of 8.4/25.5, and obesity hypoventilation syndrome - S/P 1 U PRBCs, H/H has norman stable - Pulm recommended outpatient sleep study and PFTs - Stable for DC to STR today 2. Atypical chest pain: - Stable - ACS ruled out 3. Generalized weakness: - The patient has increased weakness and decreased oral intake. - We'll encourage by mouth intake - Improved after blood transfusion - Will also decrease pain meds that may be adding to the lethargy 4. History of hypertension: - Orthostats negative - We'll continue with metoprolol, amlodipine, valsartan, Imdur and chlortrhiadone 5. Insulin-dependent diabetes mellitus: - Levemir 15 units Daily - Will need djustment as an outpatient 6. History of seizures: - We'll continue with Keppra 500 mg 4 times a day 7. Diabetic diet 8. Subcutaneous heparin for DVT prophylaxis 9. FULL CODE Problem List: 1. Shortness of breath 2. Generalized weakness 3. Chronic anemia 4. MDS (myelodysplastic syndrome) Pain Ratin Pain Location: None today Pain Goal: Remain pain free Pain Plan: MSIR, PO dilauded Tomorrow's Labs & Rationales: None DVT/Prophylaxis: pharmacological Consulting Request: 1 Consulting Specialty: Hematology/Oncology Consulting Physician: DR. Baez Reason for Consult: SOB/Anemia Consulting Request: 2 Consulting Specialty: Cardiology Consulting Physician: Dr. Mistry Reason for Consult: SOB Consulting Request: 3 Consulting Specialty: Pulmonary Disease Consulting Physician: Dr. Montano Reason for Consult: SOB/hypoxia Discharge Plan Discharge Disposition: STR/NH Stable for Discharge? Yes Anticipated Discharge (Day): today If Discharged Today/In 24 Hrs: enter [facility] discharge ord, W-10/discharge paper done, DC summary done, CMR done
[2016-09-05] MEDS ORDERED: LEVEMIR100 UNIT/1 SC (09:26)
[2016-09-05] MEDS ORDERED: MORPHINE SULFAT15 M3 PO (09:45)
--- NOTE | 2016-09-05 10:07 | PN- Att Addend ---
Attending Addendum Attending Brief Note Patient complains of significant weakness with minimal ablation. She is status post 1 unit PRBC. General Appearance: Alert, No Acute Distress Skin: Grossly normal HEENT: PEERLA Neck: Supple, No JVD Cardiovascular: Regular Rate, Normal S1, Normal S2, No Murmurs Lungs: Clear to Auscultation, Normal Air Movement Abdomen: Normal Bowel Sounds, Soft, No Tenderness Neurological: Normal Speech, Strength at 5/5 X4 Ext, Cranial Nerves 3-12 NL, Reflexes 2+ Extremities: Trace pedal edema. Speeded edema Vascular: Normal Pulses Assessment Suspect hypoxic respiratory failure is multifactorial including obesity hypoventilation, opioid pain medications and chronic anemia. She will need sleep study and pulmonary function test which can be pursued as outpatient. Will reduce her pain medication and reassess as outpatient. Plan Echocardiogram Decrease Levemir to 15 units once daily Decrease morphine sulfate long acting to twice a day Sleep study and pulmonary function tests as outpatient Continue other home meds Stable for discharge to STR Current Medications Sig/Emile Start time Last Medication Dose Route Stop Time Status Admin Acetaminophen 650 MG Q4P PRN 09/02 2199 AC PO Acetaminophen/ 15 ML Q8P PRN 09/02 214 AC 09/03 Hydrocodone Bitart PO 204 Amlodipine Besylate 10 MG DAILY 09/03 1000 AC 09/04 PO 1035 Chlorthalidone 12.5 MG DAILY 09/05 1000 AC PO Chlorthalidone 12.5 MG DAILY 09/04 1557 CAN PO Divalproex Sodium 500 MG BID 09/02 2199 AC 09/04 PO 220 Heparin Sodium 5,000 UNIT Q8 09/02 2199 AC 09/05 (Porcine) SC 0612 Ibuprofen 400 MG TID 09/02 2199 AC 09/04 PO 2205 Insulin Aspart 0 TIDAC 09/03 0800 AC 09/05 SC 0802 Insulin Detemir 15 UNITS DAILY 09/05 1000 AC SC Insulin Detemir 15 UNITS BID 09/03 2200 DC 09/04 SC 220 Isosorbide 30 MG DAILY 09/04 1045 AC 09/04 Mononitrate PO 1350 Levetiracetam 500 MG 4 TIMES/DAY 09/02 2199 AC 09/04 PO 220 Losartan Potassium 50 MG DAILY 09/03 1000 AC 09/04 PO 1035 Metoprolol Succinate 50 MG BID 09/02 2199 AC 09/04 PO 2205 Morphine Sulfate 15 MG BID 09/02 2199 AC 09/04 PO 220 Multivitamins 1 TAB DAILY 09/03 1000 AC 09/04 Therapeutic PO 1035 Omeprazole 40 MG DAILY AC 09/03 0700 AC 09/05 PO 0612 Laboratory Tests 09/04 09/04 1830 1620 Blood Gas pH (7.35 - 7.45 PH) 7.43 pCO2 (35 - 45 TORR) 40 pO2 (80 - 100 TORR) 80 HCO3 (21 - 28 MEQ/L) 26 ABG O2 Sat (Measured) (>96.0 %) 95.0 L Carboxyhemoglobin (1.5 - 5.0 %) 1.4 L O2 Concentration % RA O2 Delivery Method RA Hematology CBC w Diff NO MAN DIFF REQ WBC (4.8 - 10.8 /CUMM) 3.9 L RBC (4.20 - 5.40 /CUMM) 3.38 L Hgb (12.0 - 16.0 G/DL) 9.8 L Hct (37 - 47 %) 29.8 L MCV (81.0 - 99.0 FL) 88.3 MCH (27.0 - 31.0 PG) 29.1 RDW (11.5 - 14.5 %) 15.6 H Plt Count (130 - 400 /CUMM) 249 MPV (7.4 - 10.4 FL) 6.9 L Gran % (42.2 - 75.2 %) 62.3 Lymphocytes % (20.5 - 51.1 %) 26.0 Monocytes % (1.7 - 9.3 %) 8.4 Eosinophils % (0 - 5 %) 2.5 Basophils % (0.0 - 2.0 %) 0.8 Absolute Granulocytes (1.4 - 6.5 /CUMM) 2.4 Absolute Lymphocytes (1.2 - 3.4 /CUMM) 1.0 L Absolute Monocytes (0.10 - 0.60 /CUMM) 0.3 Absolute Eosinophils (0.0 - 0.7 /CUMM) 0.1 Absolute Basophils (0.0 - 0.2 /CUMM) 0 PUBS MCHC (33.0 - 37.0 G/DL) 32.9 L Miscellaneous Phlebotomy Draw Site RIGHT RADIAL Vital Signs Date Time Temp Pulse Resp B/P B/P Pulse O2 O2 Flow FiO2 Mean Ox Delivery Rate 09/05 0750 97.7 83 20 136/60 97 Room Air 09/05 0623 75 154/74 09/05 0323 164/70 09/05 0000 Room Air 09/04 2341 98.6 85 18 178/74 95 Room Air 09/04 2205 78 140/68 09/04 1600 Room Air 09/04 1530 98.6 80 18 138/80 95 Room Air 09/04 1350 98.8 84 20 122/68 09/04 1035 155/88 09/04 1035 155/88 09/04 1035 97.1 79 155/88
[2016-09-05 15:01] VITALS: BP 136/60
--- NOTE | 2016-09-05 16:42 | ECHOCARDIOGRAM REPORT ---
CONSTANTINE GARCIA Age: 56 : 1960 Gender: F Exam Date: 09/04/2016 18:30 Exam Location: [place] Ht (in): 64 Wt (lb): 246 BSA: 2.30 BP: 122 / 82 Ordering Physician: KAL HERNANDEZ MD Referring Physician: Bean Mistry MD Technologist: Sara Lama KELLY Room Number: [id number] Indications: SHORTNESS OF BREATH Rhythm: Sinus Technical Quality: Fair, Technically difficult study FINDINGS Left Ventricle Normal size left ventricle. No obvious regional wall motion abnormalities. Hyperdynamic left ventricular systolic function. Normal left ventricular ejection fraction estimated at 65-70%. Right Ventricle Normal right ventricular size and function. Right Atrium Normal right atrial size. Left Atrium Left atrial size at the upper limits of normal. Mitral Valve Mitral valve thickened. Trace mitral regurgitation. Aortic Valve Trileaflet aortic valve. Focal thickening of the aortic valve cusps. No aortic stenosis. No aortic regurgitation. Tricuspid Valve Tricuspid valve not well visualized, grossly normal. Trace to mild tricuspid regurgitation. Pulmonic Valve Pulmonic valve not well visualized, grossly normal. Pericardium Normal pericardium. No pericardial effusion. Great Vessels Normal size aortic root and proximal ascending aorta. CONCLUSIONS 1. This was a technically difficult examination. 2. Minimal to mild aortic sclerosis is present with no valvular stenosis or insufficiency. 3. Mitral leaflet thickening is present with minimal mitral insufficiency. 4. There is no pericardial fluid present. 5. THe left ventricular chamber size is normal with an ejection fraction of greater than 75% and no resting wall motion abnormalities. 6. Minimal to mild tricuspid insufficiency is present with no evidence of pulmonary hypertension. Bean Mistry M.D. (Electronically Signed) Final Date: 05 September 2016 16:41 MEASUREMENTS (Male / Female) Normal Values 2D ECHO LV Diastolic Diameter PLAX 4.3 cm 4.2 - 5.9 / 3.9 - 5.3 cm LV Systolic Diameter PLAX 2.0 cm 2.1 - 4.0 cm LV Fractional Shortening PLAX 53.5 % 25 - 46 % LV Ejection Fraction 2D Teich 84.7 % IVS Diastolic Thickness 1.2 cm LVPW Diastolic Thickness 1.2 cm LV Relative Wall Thickness 0.6 RV Internal Dim ED PLAX 2.7 cm 1.9 - 3.8 cm LVOT Diameter 2.0 cm Aortic Root Diameter 2.7 cm LA Systolic Diameter LX 3.6 cm 3.0 - 4.0 / 2.7 - 3.8 cm LA Volume 20.0 cm 18 - 58 / 22 - 52 cm Ascending Aorta Diameter 2.5 cm DOPPLER AV Peak Velocity 191.0 cm/s AV Peak Gradient 14.6 mmHg AV Mean Velocity 124.0 cm/s AV Mean Gradient 7.0 mmHg AV Velocity Time Integral 36.1 cm LVOT Peak Velocity 156.0 cm/s LVOT Peak Gradient 9.7 mmHg LVOT Mean Velocity 100.0 cm/s LVOT Mean Gradient 5.0 mmHg LVOT Velocity Time Integral 31.4 cm LVOT Stroke Volume 98.6 cm AV Area Cont Eq vti 2.7 cm AV Area Cont Eq pk 2.6 cm MV Peak Velocity 115.0 cm/s MV Peak Gradient 5.3 mmHg MV Mean Velocity 64.0 cm/s MV Mean Gradient 2.0 mmHg Mitral E Point Velocity 81.9 cm/s Mitral A Point Velocity 90.8 cm/s Mitral E to A Ratio 0.9 MV PHT Velocity 105.0 cm/s MV Deceleration Comal 422.0 cm/s MV Pressure Half Time 74.6 ms MV Area PHT 2.9 cm MV Deceleration Time 248.0 ms TR Peak Velocity 149.0 cm/s TR Peak Gradient 8.9 mmHg Right Atrial Pressure 5.0 mmHg Pulmonary Artery Systolic Pressu 13.9 mmHg Right Ventricular Systolic Press 13.9 mmHg PV Peak Velocity 131.0 cm/s PV Peak Gradient 6.9 mmHg PV Mean Velocity 102.0 cm/s PV Mean Gradient 4.0 mmHg PV Velocity Time Integral 30.6 cm LV E' Lateral Velocity 11.1 cm/s Mitral E to LV E' Lateral Ratio 7.4 LV E' Septal Velocity 13.8 cm/s Mitral E to LV E' Septal Ratio 5.9
== END 2016-09-05 15:28 | DRG 205 ==
LOC: ENRESERVTM → ENRESERVDT → ERH 13:31 → 1NO 19:43 → ERHI 19:43 → 1NO 19:43 → ENPENDDIS 09-05 14:05 → 1NO 09-05 15:28
PROVIDERS: Internal Medicine Infectious Disease; Physician Assistant Medical; Student in an Organized Health Care Education/Training Program; ADMIT Internal Medicine
PROC: 30233N1 Transfusion of Nonautologous Red Blood Cells into Peripheral Vein, Percutaneous Approach (ICD-10-PCS; principal; 2016-09-04)
DX: E66.2 Morbid (severe) obesity with alveolar hypoventilation (principal); J96.01 Acute respiratory failure with hypoxia; E11.649 Type 2 diabetes mellitus with hypoglycemia without coma; R56.9 Unspecified convulsions; I11.0 Hypertensive heart disease with heart failure; Z68.41 Body mass index [BMI] 40.0-44.9, adult; I50.32 Chronic diastolic (congestive) heart failure; D46.9 Myelodysplastic syndrome, unspecified; I25.10 Atherosclerotic heart disease of native coronary artery without angina pectoris; I95.1 Orthostatic hypotension; D64.9 Anemia, unspecified; R07.89 Other chest pain; Z79.4 Long term (current) use of insulin
CPT/HCPCS: 1NP; 36415; 81001; 82436; 86920; 87040; 87070; 87147; 93005; 93010; 93306; 93970; 96361; 96374; 97110-GO; 97116-GO; 97161-GP; 97530-GO; J1644; J1815; J2405; P9016